=== PATIENT | female | born 1945 | race Caucasian/White ===

== ENCOUNTER 2022-09-27 00:34 | Inpatient (IN) | payer MEDICARE, MEDICAID, SELFPAY ==
[2022-09-27] VITALS (22 sets, daily range): BP systolic 101–138; BP diastolic 56–78; PULSE 79–110; RESP 13–32; TEMP 37.1–37.6; O2SAT 87–100; BMI 21.9
--- NOTE | 2022-09-27 00:35 | HMH.EDGENADL ---
Discharge Plan Disposition Chief Complaint: Altered Mental Status Clinical Impressions Clinical Impression: Acute respiratory failure with hypoxia and hypercarbia, Acute exacerbation of chronic obstructive pulmonary disease (COPD) Instructions Patient Instructions: DI for Altered Mental Status Discharge ED Provider: Braeden Winters Adult HPI General Chief complaint: Altered Mental Status Stated complaint: Respiratory Failure Time Seen by Provider: 09/27/22 00:35 Mode of Arrival: EMS History of Present Illness HPI narrative: 76-year-old female reported history of COPD on 2 L nasal cannula at home presents with acute respiratory failure and altered mental status. Patient unable to provide any significant history. History obtained from EMS. Per report patient became unresponsive while getting a nebulizer treatment at home, on EMS arrival patient was satting 25%, on nonrebreather in route satting in the 60s. On arrival patient normotensive, minimally responsive. History limited by acute of condition. Further history obtained from family at bedside after resuscitation, patient recently admitted to [facility] for pneumonia and was placed on oxygen at that time. They are unsure what happened with her oxygen/nebulizer treatments at home today as they were not at the house at the time of decompensation. Related Data Allergies Allergy/AdvReac Type Severity Reaction Status Date / Time No Known Allergies Allergy Verified 09/27/22 00:58 [facility] Disclaimer: The information contained in this section may have been updated after the patient was seen, as this information can be updated by other users. Social History Smoking Status: Current every day smoker alcohol intake: never current occupational status: retired Travel in the last 8 weeks: None ROS Obtained: Yes unobtainable due to mental condition Physical Exam General General appearance: in distress and other (Minimally responsive) Head Head exam: atraumatic and normocephalic Eye Eye exam: Present PERRL ENT ENT exam: Present normal oropharynx, mucous membranes dry and normal external ear exam Neck Neck exam: Present normal inspection and full ROM Chest Chest inspection: Present symmetric chest wall rise and other (Barrel chested); Absent tenderness Respiratory Respiratory exam: Present respiratory distress and other (Wheezing and rhonchi bilaterally with prolonged expiratory phase, poor air movement) Cardiovascular Cardiovascular exam: Present normal rhythm and tachycardia Abdominal Exam Abdominal exam: Present soft; Absent distention, tenderness or guarding Extremities Exam Extremities exam: Present edema; Absent joint swelling Back Exam Back exam: Present normal inspection; Absent tenderness Neurological Exam Neurological exam: Present other (GCS 11 on arrival) Psychiatric Psychiatric exam: Present other (Unable to assess secondary to altered mental status) Skin Skin exam: Present warm, dry and normal color Lymphatic Lymphatic Findings: no adenopathy Medical Decision Making Medical Records Medical records reviewed: Yes I reviewed the patient's medical records. Albino Inquiry Pt receiving controlled substance: No Albino was queried for this patient: No Vital Signs: 09/27/22 00:39 Temperature 99.6 F Temperature Source Rectal Pulse Rate [Right] 104 H Respiratory Rate 23 Blood Pressure [Right Arm] 138/78 Blood Pressure Mean [Right Arm] 98 Blood Pressure Source [Right Arm] Automatic Cuff Blood Pressure Position [Right Arm] Supine 02 Sat by Pulse Oximetry 100 Oxygen Delivery Method BiPAP Lab Data Lab results reviewed: Yes I reviewed the patient's lab results. Lab Results 09/27/22 00:25: WBC 15.0 H, RBC 4.73, Hgb 12.9, Hct 43.2, MCV 91.3, MCH 27.2, MCHC 29.8 L, RDW 14.4, Plt Count 284, MPV 7.3 L, Neut % (Auto) 70.7, Lymph % (Auto) 19.5, [place] % (Auto) 3.7, Eos % (Auto) 5.7, Baso % (Auto) 0.4, Neut # (Auto) 10.6 H, Lymph
--- NOTE | 2022-09-27 00:36 | XR_ITS ---
PROCEDURE INFORMATION: Exam: XR Chest Exam date and time: 09/27/2022 12:35 AM Age: 76 years old Clinical indication: Condition or disease; Lung condition and disease; Hypoxia TECHNIQUE: Imaging protocol: Radiologic exam of the chest. Views: 1 view. COMPARISON: No relevant prior studies available. FINDINGS: Lungs: Underlying interstitial lung markings. Hyperinflated lungs. Pleural spaces: Tiny bilateral pleural effusions versus chronic pleural thickening. Heart/Mediastinum: Unremarkable. No cardiomegaly. Vasculature: Atherosclerotic calcification of thoracic aorta. Bones/joints: Unremarkable. IMPRESSION: Tiny pleural effusions versus chronic pleural thickening.
[2022-09-27 00:45] LABS: Basophils # 0.1 K/mm3 (0-0.2); Basophils % 0.4 % (0.1-2.0); Eosinophils # 0.9 K/mm3 (0.0-0.4); Eosinophils % 5.7 % (0.1-12.0); Hematocrit 43.2 % (37.0-47.0); Hemoglobin 12.9 g/dL (12.2-16.2); Lymphocytes # 2.9 K/mm3 (0.7-4.5); Lymphocytes % 19.5 % (10-50); Mean Corpuscular HGB Conc 29.8 g/dL (31.8-35.4); Mean Corpuscular Hemoglobin 27.2 pg (27.0-31.2); Mean Corpuscular Volume 91.3 fl (81-99); Mean Platelet Volume 7.3 fl (7.4-10.4); Monocytes # 0.6 K/mm3 (0.1-1.0); Monocytes % 3.7 % (1.7-9.3); Neutrophils # 10.6 K/mm3 (1.8-7.8); Neutrophils % 70.7 % (37.0-80.0); Platelet Count 284 K/mm3 (142-424); Red Blood Count 4.73 M/mm3 (4.20-5.40); Red Cell Distribution Width 14.4 % (11.5-17.5)
--- NOTE | 2022-09-27 00:45 | ECG_ITS ---
APPROVED REPORT Exam: Resting ECG HR:107 bpm ECG Measurements Heart Rate 107 AXES WI 172 P 79 QRSd 92 QRS -84 QT 346 T 72 QTc 408 Conclusion SINUS TACHYCARDIA Bi-atrial abnormality LEFT AXIS DEVIATION [QRS AXIS < -30] ABNORMAL ECG UNCONFIRMED REPORT Electronically signed by : Jose Nelson MD 09/27/2022 16:16:33
[2022-09-27 00:46] LABS: MANUAL DIFFERENTIAL MANUAL DIFFERENTIAL (MANUAL DIFF)
--- NOTE | 2022-09-27 00:47 | CT_ITS ---
PROCEDURE INFORMATION: Exam: CTA Chest With Contrast Exam date and time: 09/27/2022 1:09 AM Age: 76 years old Clinical indication: Condition or disease; Lung condition and disease; Hypoxia; Additional info: Hypoxia AMS TECHNIQUE: Imaging protocol: Computed tomographic angiography of the chest with contrast. Exam focused on the arteries. 3D rendering (Not supervised by radiologist): MIP and/or 3D reconstructed images were created by the technologist. Radiation optimization: All CT scans at this facility use at least one of these dose optimization techniques: automated exposure control; mA and/or kV adjustment per patient size (includes targeted exams where dose is matched to clinical indication); or iterative reconstruction. Contrast material: ISOVUE; Contrast volume: 70 ml; Contrast route: INTRAVENOUS (IV); REPORTING DATA: Count of CT and Cardiac NM exams in prior 12 months: This patient has received 0 known CTs and 0 known cardiac nuclear medicine studies in the 12 months prior to the current study. COMPARISON: CR XR CHEST PORTABLE 09/27/2022 12:35 AM FINDINGS: Pulmonary arteries: Normal. No pulmonary emboli. Aorta: Atherosclerotic calcification of thoracic aorta. No aortic dissection. No aortic aneurysm. Lungs: Benign calcified nodule in left lower lobe. Underlying diffuse centrilobular emphysematous changes throughout both lungs. Underlying bronchiectasis most pronounced lower lung zones. Pleural spaces: Unremarkable. No pneumothorax. No pleural effusion. Heart: Unremarkable. No cardiomegaly. No pericardial effusion. Coronary arteries: Atherosclerotic calcification of coronary arteries. Lymph nodes: Unremarkable. No enlarged lymph nodes. Bones/joints: Unremarkable. No acute fracture. Soft tissues: Unremarkable. IMPRESSION: 1. No central or segmental pulmonary embolism by CT criteria. 2. Emphysematous changes. COMMENTS: In the absence of a history or active diagnosis of lung cancer, it is recommended that this patient with emphysema be evaluated for enrollment in a low dose CT lung cancer screening program.
--- NOTE | 2022-09-27 00:47 | CT_ITS ---
PROCEDURE INFORMATION: Exam: CT Head Without Contrast Exam date and time: 09/27/2022 1:05 AM Age: 76 years old Clinical indication: Altered mental status/memory loss; Additional info: AMS TECHNIQUE: Imaging protocol: Computed tomography of the head without contrast. Radiation optimization: All CT scans at this facility use at least one of these dose optimization techniques: automated exposure control; mA and/or kV adjustment per patient size (includes targeted exams where dose is matched to clinical indication); or iterative reconstruction. REPORTING DATA: Count of CT and Cardiac NM exams in prior 12 months: This patient has received 0 known CTs and 0 known cardiac nuclear medicine studies in the 12 months prior to the current study. COMPARISON: No relevant prior studies available. FINDINGS: Brain: Underlying periventricular white matter changes. Underlying parenchymal cortical volume loss. Cerebral ventricles: No ventriculomegaly. Paranasal sinuses: Postsurgical changes compatible with partial ethmoidectomies. Chronic mucosal thickening of maxillary sinus and ethmoid air cells. Mastoid air cells: Visualized mastoid air cells are well aerated. Bones/joints: Unremarkable. No acute fracture. Soft tissues: Unremarkable. Other findings: No fluid opacification. IMPRESSION: 1. No acute intracranial findings by CT criteria. Chronic underlying changes. 2. Chronic sinus congestion.
[2022-09-27 00:48] LABS: Chloride 97 mmol/L (98-107); Potassium 3.7 mmoL/L (3.5-5.1); Sodium 138 mmol/L (136-145)
[2022-09-27 00:51] LABS: Alanine Aminotransferase 25 U/L (12-78); Albumin Level 3.8 g/dl (3.5-5.0); Albumin/Globulin Ratio 1.2 (1.1-1.8); Alkaline Phosphatase 141 U/L (38-126); Anion Gap 8.7 mEq/L (5-15); Aspartate Amino Transferase 46 U/L (14-36); Bilirubin,Total 0.6 mg/dl (0.2-1.3); Blood Urea Nitrogen 5 mg/dl (7-17); Carbon Dioxide 36 mmol/L (22.0-30.0); Estimated Glomerular Filt Rate 97 ml/min (>60); GFR (African American) 118 ML/MIN (>60); Globulin 3.1 g/dL (1.3-3.2); Total Protein,Serum 6.9 g/dl (6.3-8.2)
[2022-09-27 00:52] LABS: Calcium 8.7 mg/dl (8.4-10.2); Glucose 262 mg/dl (74-100)
[2022-09-27 01:03] LABS: NT Pro Brain Natriuretic Pep. 338 pg/mL (0-450); Troponin I < 0.01 ng/ml (0.00-0.034)
[2022-09-27 01:11] LABS: Lactic Acid 1.4 mmol/L (0.7-2.1)
[2022-09-27 01:25] LABS: Microscopic, Urine URINE MICROSCOPIC (MICROSCOPIC)
[2022-09-27 01:35] LABS: Appearance,Urine CLEAR (Clear); Bilirubin,Urine Negative (Negative); Blood, Urine 2+ (Negative); Color,Urine YELLOW (Yellow); Glucose,Urine (UA) 1+ (Negative); Ketones,Urine Negative (Negative); Leukocyte Esterase,Urine Negative (Negative); Nitrate,Urine Negative (Negative); PH,Urine 5.5 (5.0-8.5); Protein,Urine 2+ (Negative); Specific Gravity, Urine >= 1.030 (1.005-1.030)
[2022-09-27 01:44] LABS: VBG Base Excess 4.1 mmol/L (-2.4-2.3); VBG HCO3 32.7 mmol/L (23-30); VBG Oxygen Saturation 80.9 % (50-70); VBG PCO2 91.6 mmol/L (35-51); VBG PH 7.17 mmol/L (7.31-7.41); VBG PO2 49.4 mmol/L (28-40); VBG Total CO2 35.5 mmol/L (23-27)
[2022-09-27 01:45] LABS: Bacteria,Urine Trace /lpf; Barbiturates Screen,Urine Negative ng/ml (<200)
[2022-09-27 01:46] LABS: Amphetamine/Metha Screen,Urine Negative ng/ml (<1000); Benzodiazepines Screen,Urine Negative ng/ml (<200)
[2022-09-27 01:47] LABS: Cannabinoid Screen,Urine Negative ng/ml (<50)
[2022-09-27 01:48] LABS: Cocaine Screen,Urine Negative ng/ml (<300); Methadone Screen,Urine Negative ng/ml (<300)
[2022-09-27 01:49] LABS: Opiate Screen,Urine Negative ng/ml (<300)
[2022-09-27 01:50] LABS: Phencyclidine Screen,Urine Negative ng/ml (<25)
[2022-09-27 01:54] LABS: VBG Base Excess 7.8 mmol/L (-2.4-2.3); VBG Oxygen Saturation 80.5 % (50-70); VBG PO2 50.6 mmol/L (28-40); VBG Total CO2 40.5 mmol/L (23-27)
--- NOTE | 2022-09-27 01:57 | PC.NURSE ---
took VBG results via phone. handed immediately to
[2022-09-27 01:58] LABS: VBG PCO2 113.5 mmol/L (35-51); VBG PH 7.13 mmol/L (7.31-7.41)
[2022-09-27 02:08] LABS: Hypochromasia 2+; Lymphocytes % 19 % (10-50); Monocytes % 6 % (2-9); Neutrophils % 75 % (42-76); Platelet Estimate Normal; Total Cells Counted 100
--- NOTE | 2022-09-27 03:03 | EXP.HP ---
History of Present Illness *Admission Date: 09/27/22 *Reason for visit:: COPD exacerbation *History of present illness: 76 year old female presented to the ED via ems for hypoxia. Upon arrival to the ED the patient's o2 was 64% on a nonrebreather. Pt was placed on BIPAP with improvement in mental status. PMHX of COPD per EMS. Pt and family poor historian. Son at bedside and states pt only uses oxygen and breathing treatments at home. Niece states pt is non complaint with the oxygen and is still smoking. Pt became unresponsive tonight and family called ems. EMS states upon arrival to [place] [id number] was 25%. The patient was dx from [facility] for a COPD exacerbation. In the ED the pt became more responsive with use of BIPAP. Initial VBG w/ pH of 7.17 and PCO2 91.6. Repeat VBG after BIPAP worsen to pH 7.13 and PCO2 of 113.5. Report of little use due to travel for imaging in the ED. The pt received a CTA of her chest and chest xray which revealed emphysematous changes without PE or other abnormalities. She was given methylprednisolone, rocephin, and azithromycin. The ED physician spoke with the hospitalist team for admission. Pt arrives to the medical floor in distress. Pt placed back on BIPAP. Pt is following comands and breathing 60 times a minute. She was given 2g of IV mag and her rate improved with BIPAP use. Will repeat blood gas [facility] Disclaimer: The information contained in this section may have been updated after the patient was seen, as this information can be updated by other users. Medical History Bronchiectasis Chronic respiratory failure with hypoxia COPD (chronic obstructive pulmonary disease) On home O2 Pulmonary nodule Smoker Family History (Updated 09/27/22 @ 05:19 by Benitez Banda RN) Family history of stroke Social History Smoking Status: Current every day smoker alcohol intake: never current occupational status: retired Travel in the last 8 weeks: None Review of Systems Review of Systems Review of systems:: pertinent systems reviewed and negative unless documented below Constitutional Constitutional: Reports system reviewed and no additional complaints, except as documented Eyes Eyes: Reports system reviewed and no additional complaints, except as documented ENT Ears, Nose, Mouth, and Throat: Reports system reviewed and no additional complaints, except as documented *Cardiovascular Cardiovascular: Reports system reviewed and no additional complaints, except as documented and Reports dyspnea on exertion *Respiratory Respiratory: Reports dyspnea on exertion *Gastrointestinal Gastrointestinal: Reports system reviewed and no additional complaints, except as documented *Genitourinary Genitourinary: Reports system reviewed and no additional complaints, except as documented *Musculoskeletal Musculoskeletal: Reports system reviewed and no additional complaints, except as documented Integumentary/Breasts Skin/Breast: Reports system reviewed and no additional complaints, except as documented *Neurologic Neurologic: Reports system reviewed and no additional complaints, except as documented Meds Home Medications and Allergies Home Medications Medication Instructions Recorded Confirmed Type budesonide-formoterol HFA 160 2 puff inhalation BID Breathing 09/27/22 09/27/22 History mcg-4.5 mcg/actuation aerosol Problems inhaler (Symbicort) conjugated estrogens 0.625 mg/gram 0.625 mg vaginal DAILY Pessary 09/27/22 09/27/22 History vaginal cream (Premarin) ipratropium 0.5 mg-albuterol 3 mg 3 ml inhalation Q6HP PRN Breathing 09/27/22 09/27/22 History (2.5 mg base)/3 mL nebulization Problems soln multivitamin 1 tab PO DAILY Supplement 09/27/22 09/27/22 History New Prescriptions to Start Prescriptions: Allergies Allergy/AdvReac Type Severity Reaction Status Date / Time No Known Allergies Allergy Verified 09/27/22 00:58 E
[2022-09-27 04:00] LABS: Troponin I 0.02 ng/ml (0.00-0.034)
[2022-09-27 04:58] LABS: ABG Base Excess 6.8 mmol/L (-2.4-2.3); ABG HCO3 33.9 mmhg (22.0-26.0); ABG Oxygen Saturation 89 % (90-100); ABG PH 7.26 mmol/L (7.35-7.45); ABG TCO2 36.2 mmhg (23-27)
[2022-09-27 04:59] LABS: Allen's Test Acceptable; Oxygen 25 %; Pressure Support 16/6; Source Right Radial; Vent Rate 20
[2022-09-27 05:01] LABS: ABG PCO2 77.2 mmhg (35.0-45.0)
[2022-09-27 06:30] LABS: Basophils % 0.2 % (0.1-2.0); Eosinophils % 0.1 % (0.1-12.0); Hematocrit 41.7 % (37.0-47.0); Hemoglobin 12.6 g/dL (12.2-16.2); Lymphocytes # 0.5 K/mm3 (0.7-4.5); Lymphocytes % 5.4 % (10-50); Mean Corpuscular HGB Conc 30.2 g/dL (31.8-35.4); Mean Corpuscular Hemoglobin 27.6 pg (27.0-31.2); Mean Corpuscular Volume 91.3 fl (81-99); Mean Platelet Volume 7.9 fl (7.4-10.4); Monocytes # 0.2 K/mm3 (0.1-1.0); Monocytes % 2.1 % (1.7-9.3); Neutrophils # 8.7 K/mm3 (1.8-7.8); Neutrophils % 92.2 % (37.0-80.0); Platelet Count 242 K/mm3 (142-424); Red Blood Count 4.57 M/mm3 (4.20-5.40); Red Cell Distribution Width 14.6 % (11.5-17.5); White Blood Count 9.5 K/mm3 (4.8-10.8)
[2022-09-27 06:36] LABS: Anion Gap 7.9 mEq/L (5-15); Blood Urea Nitrogen 6 mg/dl (7-17); Calcium 8.3 mg/dl (8.4-10.2); Carbon Dioxide 35 mmol/L (22.0-30.0); Chloride 101 mmol/L (98-107); Creatinine Clearance Estimated 39 mL/min (50-200); Estimated Glomerular Filt Rate 120 ml/min (>60); GFR (African American) 146 ML/MIN (>60); Glucose 131 mg/dl (74-100); Potassium 3.9 mmoL/L (3.5-5.1); Sodium 140 mmol/L (136-145)
--- NOTE | 2022-09-27 08:20 | HMH.PHAINT1 ---
Pharmacy Intervention Comments: Patient's home mediations were reviewed and verified with family members of the patient. -Son Linder, PharmD student
--- NOTE | 2022-09-27 08:58 | EXP.PULM.CON ---
History of Present Illness History of present illness: Ms. Miller is a 76-year-old female current smoker greater than [id number] smoking cigars a diagnosis of COPD noncompliant with her inhaler therapy presented with worsening respiratory distress and hypercarbic respiratory failure needing BiPAP therapy and pulmonary was called for further evaluation [facility] Disclaimer: The information contained in this section may have been updated after the patient was seen, as this information can be updated by other users. Medical History Bronchiectasis Chronic respiratory failure with hypoxia COPD (chronic obstructive pulmonary disease) On home O2 Pulmonary nodule Smoker Family History (Updated 09/27/22 @ 05:19 by Benitez Banda, RN) Other Family history of stroke Social History Smoking Status: Current every day smoker alcohol intake: never current occupational status: retired Travel in the last 8 weeks: None Review of Systems Constitutional Constitutional: Reports anorexia, Reports body ache(s) and Reports fatigue Eyes Eyes: Denies eye discharge, Denies dry eyes, Denies irritation and Denies itchy eyes ENT Ears, Nose, Mouth, and Throat: Denies epistaxis, Denies facial pain, Denies lip swelling and Denies throat swelling *Cardiovascular Cardiovascular: Reports dyspnea and Reports dyspnea on exertion *Respiratory Respiratory: Reports chest congestion, Reports cough, Reports dyspnea, Reports dyspnea on exertion, Reports excessive phlegm production, Denies hemoptysis, Denies pain on inspiration and Reports wheezing *Gastrointestinal Gastrointestinal: Denies abdominal pain, Denies belching and Denies cramping *Musculoskeletal Musculoskeletal: Reports back pain, Reports myalgias and Reports other (No small joint swelling or Pain) *Neurologic Neurologic: Reports system reviewed and no additional complaints, except as documented Psychiatric Psychiatric: Denies homicidal ideation and Denies suicidal ideation Endocrine Endocrine: Reports fatigue and Denies heat intolerance Hematologic/Lymphatic Hematologic/Lymphatic: Denies easy bleeding and Denies lymphadenopathy Allergic/Immunologic Allergic/Immunologic: Denies itchy eyes, Denies lip swelling, Denies throat swelling and Reports wheezing Pulmonology Exam Inpatient Vital signs and Labs for Last 24 Hours: Temp Pulse Resp BP Pulse Ox O2 Del Method O2 Flow Rate 99.2 F 79 13 108/63 L 92 L Nasal Cannula 3 09/27/22 08:08 09/27/22 08:00 09/27/22 08:00 09/27/22 08:00 09/27/22 08:48 09/27/22 08:48 09/27/22 08:48 FiO2 25 09/27/22 08:00 Laboratory Results - last 24 hr 09/27/22 00:25: WBC 15.0 H, RBC 4.73, Hgb 12.9, Hct 43.2, MCV 91.3, MCH 27.2, MCHC 29.8 L, RDW 14.4, Plt Count 284, MPV 7.3 L, Neut % (Auto) 70.7, Lymph % (Auto) 19.5, [place] % (Auto) 3.7, Eos % (Auto) 5.7, Baso % (Auto) 0.4, Neut # (Auto) 10.6 H, Lymph # (Auto) 2.9, [place] # (Auto) 0.6, Eos # (Auto) 0.9 H, Baso # (Auto) 0.1, Total Counted 100, Neutrophils % (Manual) 75, Lymphocytes % (Manual) 19, Monocytes % (Manual) 6, Platelet Estimate Normal, Hypochromasia 2+, Sodium 138, Potassium 3.7, Chloride 97 L, Carbon Dioxide 36 H, Anion Gap 8.7, BUN 5 L, Creatinine 0.60, Estimated GFR 97, Est GFR ( Amer) 118, Glucose 262 H, Calcium 8.7, Magnesium 2.0, Total Bilirubin 0.6, AST 46 H, ALT 25, Alkaline Phosphatase 141 H, Troponin I < 0.01, NT-Pro-B Natriuret Pep 338, Total Protein 6.9, Albumin 3.8, Globulin 3.1, Albumin/Globulin Ratio 1.2 09/27/22 00:36: VBG pH 7.17 L, VBG pCO2 91.6 H, VBG pO2 49.4 H, VBG HCO3 32.7 H, VBG Total CO2 35.5 H, VBG O2 Saturation 80.9 H, VBG Base Excess 4.1 H 09/27/22 00:54: Lactate 1.4 09/27/22 01:20: Urine Color Yellow, Urine Appearance Clear, Urine pH 5.5, Ur Specific [place] >= 1.030, Urine Protein 2+, Urine Glucose (UA) 1+, Urine Ketones Negative, Urine Blood 2+, Urine Nitrate Negative, Urine Bilirubin Negative, Urine Urobilinog
[2022-09-27 10:55] LABS: Adenovirus,PCR Not Detected (NotDetected); Bordetella Pertussis Not Detected (NotDetected); Chlamydophila Pneumoniae, PCR Not Detected (NotDetected); Coronavirus 19, PCR Not Detected (NotDetected); Coronavirus 229E Not Detected (NotDetected); Coronavirus NL63 Not Detected (NotDetected); Coronavirus OC43 Not Detected (NotDetected); Coronovirus HKU1,PCR Not Detected (NotDetected); Human Metapneumovirus Not Detected (NotDetected); Influenza A, PCR Not Detected (NotDetected); Influenza AH1, 2009 Not Detected (NotDetected); Influenza AH1, PCR Not Detected (NotDetected); Influenza AH3,PCR Not Detected (NotDetected); Influenza B, PCR Not Detected (NotDetected); Mycoplasma Pneumoniae, PCR Not Detected (NotDetected); Parainfluenza 1, PCR Not Detected (NotDetected); Parainfluenza 2, PCR Not Detected (NotDetected); Parainfluenza 3, PCR Not Detected (NotDetected); Parainfluenza 4, PCR Not Detected (NotDetected); Respiratory Syncytial Virus Not Detected (NotDetected)
[2022-09-27 13:04] LABS: Rhinovirus/Enterovirus Detected (NotDetected)
--- NOTE | 2022-09-27 13:57 | PC.NURSE ---
pt's mayes catheter leaking, removed mayes catheter at this time, 1000mL in bag but also had some on sheets; instructed pt to call when needs to go so can assist her to bathroom; SRNA's Rosalia and Nohemy got pt up to chair and changed pt's bed
--- NOTE | 2022-09-27 17:06 | PC.NURSE ---
moving pt to 214 from 219
--- NOTE | 2022-09-27 17:11 | PC.NURSE ---
moving pt after she eats dinner to 204 from 219
--- NOTE | 2022-09-27 17:47 | PC.NURSE ---
Report received from Olivia Mcnamara RN. Clarified orders with Joe ADAMS. Pt does not need to be placed on Bipap overnight. She is currently on 3.5 L NC. Resting in the chair. She is happy and joking with staff. Family in room with pt. No needs expressed at this time. Call light within reach.
[2022-09-28] VITALS (7 sets, daily range): BP systolic 98–120; BP diastolic 55–70; PULSE 80–105; RESP 16–22; TEMP 36.5–37.2; O2SAT 88–98; BMI 22.8
--- NOTE | 2022-09-28 05:17 | PC.NURSE ---
SRNA found glassine machine tender in bed with pt during a linen change, glassine machine tender removed from room r/t safety concerns regarding need for pt oxygen use. glassine machine tender is small and black; labeled with a pt sticker, inside a bag, placed in the pt chart. Emergency Medical Tech is aware of the situation.
--- NOTE | 2022-09-28 06:23 | PC.NURSE ---
pt stated she had a bath 09/27 dayshift, didn't recieved one 09/27 7p-7a
[2022-09-28 06:56] LABS: Basophils % 0.1 % (0.1-2.0); Eosinophils % 0.1 % (0.1-12.0); Hematocrit 38.1 % (37.0-47.0); Hemoglobin 11.3 g/dL (12.2-16.2); Lymphocytes # 1.2 K/mm3 (0.7-4.5); Lymphocytes % 13.3 % (10-50); Mean Corpuscular HGB Conc 29.8 g/dL (31.8-35.4); Mean Corpuscular Volume 90.5 fl (81-99); Mean Platelet Volume 7.9 fl (7.4-10.4); Monocytes # 0.4 K/mm3 (0.1-1.0); Monocytes % 4.4 % (1.7-9.3); Neutrophils # 7.6 K/mm3 (1.8-7.8); Neutrophils % 82.1 % (37.0-80.0); Platelet Count 275 K/mm3 (142-424); Red Blood Count 4.21 M/mm3 (4.20-5.40); Red Cell Distribution Width 14.4 % (11.5-17.5); White Blood Count 9.2 K/mm3 (4.8-10.8)
[2022-09-28 07:05] LABS: Alanine Aminotransferase 19 U/L (12-78); Albumin Level 3.2 g/dl (3.5-5.0); Albumin/Globulin Ratio 1.1 (1.1-1.8); Alkaline Phosphatase 99 U/L (38-126); Anion Gap 4.3 mEq/L (5-15); Aspartate Amino Transferase 23 U/L (14-36); Blood Urea Nitrogen 13 mg/dl (7-17); Calcium 8.4 mg/dl (8.4-10.2); Carbon Dioxide 39 mmol/L (22.0-30.0); Chloride 101 mmol/L (98-107); Creatinine Clearance Estimated 41 mL/min (50-200); Estimated Glomerular Filt Rate 97 ml/min (>60); GFR (African American) 118 ML/MIN (>60); Globulin 2.8 g/dL (1.3-3.2); Glucose 140 mg/dl (74-100); Magnesium 2.2 mg/dl (1.6-2.3); Potassium 4.3 mmoL/L (3.5-5.1); Sodium 140 mmol/L (136-145)
[2022-09-28 07:10] LABS: Bilirubin,Total < 0.1 mg/dl (0.2-1.3)
--- NOTE | 2022-09-28 07:48 | EXP.DC.SUM ---
General Admission date:: 09/27/22 Discharge date: 09/28/22 HPI HPI HPI: 76 year old female presented to the ED via ems for hypoxia. Upon arrival to the ED the patient's o2 was 64% on a nonrebreather. Pt was placed on BIPAP with improvement in mental status. PMHX of COPD per EMS. Pt and family poor historian. Son at bedside and states pt only uses oxygen and breathing treatments at home. Niece states pt is non complaint with the oxygen and is still smoking. Pt became unresponsive tonight and family called ems. EMS states upon arrival to [place] 02 was 25%. The patient was dx from [facility] for a COPD exacerbation. In the ED the pt became more responsive with use of BIPAP. Initial VBG w/ pH of 7.17 and PCO2 91.6. Repeat VBG after BIPAP worsen to pH 7.13 and PCO2 of 113.5. Report of little use due to travel for imaging in the ED. The pt received a CTA of her chest and chest xray which revealed emphysematous changes without PE or other abnormalities. She was given methylprednisolone, rocephin, and azithromycin. The ED physician spoke with the hospitalist team for admission. Pt arrives to the medical floor in distress. Pt placed back on BIPAP. Pt is following comands and breathing 60 times a minute. She was given 2g of IV mag and her rate improved with BIPAP use. Will repeat blood gas Hospital Course Hospital Course Hospital Course: 76 year old female presented to the ED via ems for hypoxia. Upon arrival to the ED the patient's o2 was 64% on a nonrebreather. Blood gas positive for hypercarbia, placed on BiPAP with gradual improvement over the first day of admission in mentation and hypercapnic respiratory failure. Transition to nasal cannula oxygen (wears 2 L continuous at home). Comprehensive respiratory panel positive for enterovirus/rhinovirus. Treating for COPD exacerbation and acute hypercarbic respiratory failure. Pulmonology assisted with care. Has improved to the point she stable for discharge home to continue treatment with oral antibiotics and steroids. Discussed prognosis and treatment with family at bedside. Problems addressed as follows: ACUTE RESPIRATORY FAILURE WITH HYPOXIA AND HYPERCARBIA COPD exacerbation -Presented to ED with saturations of 64% and CO2 greater than 100. Initiated on BiPAP with gradual improvement by morning. Improve mentation and back to baseline per family. Pulmonology was consulted and assisted with care. Able to come off BiPAP and transition to just nasal cannula oxygen. Started on ceftriaxone and azithromycin along with steroids for her COPD exacerbation. Will transition to levofloxacin to complete 5 days of antibiotics on discharge. Steroids transition to prednisone to complete 5 days of treatment. Patient will follow with pulmonology in the coming weeks. Pulmonology recommends PFTs and 6-minute walk test in 6 weeks. At this time patient is stable to discharge home and continue weaning her oxygen and treatment with antibiotics and steroids. On 2 to 4 L oxygen for the past 24 hours depending on if she is awake or asleep. Chest imaging and CTA of chest reviewed showing emphysematous changes but no focal consolidation or PE. Continue DuoNebs every 6 hours as needed at home. Inhaler therapy transition to [facility], sent home with inhaler from hospital. Of note, extensive counseling on tobacco cessation. Patient states understanding. Started on nicotine patches to aid in cessation. Exam Data for Last 24 hours Vital signs and Labs for Last 24 Hours: Temp Pulse Resp BP Pulse Ox O2 Del Method O2 Flow Rate 97.7 F 91 H 18 120/70 93 L Nasal Cannula 3.5 09/28/22 07:16 09/28/22 07:16 09/28/22 07:16 09/28/22 07:16 09/28/22 07:36 09/28/22 07:36 09/28/22 07:36 FiO2 25 09/27/22 08:00 Laboratory Results - last 24 hr 09/27/22 10:45: Chlamy pneumoniae PCR Not detected, Adenovirus (PCR) Not detected, B. pertussis DNA (PCR) Not detected, Coronavirus OC43 (PCR) Not detected, Coronavirus
--- NOTE | 2022-09-28 09:45 | PC.NURSE ---
Alina Fox notified reguarding patient discharged on a weekend, and still needing a PFT and 6 minute walk scheduled as well as a follow up appt. Dr. Russ office will notify patient next week with times and dates of appts.
--- NOTE | 2022-10-01 14:10 | CARE MANAGER ---
Attempted to contact patient related to hospital discharge. The number listed in the chart is a wrong number. TAWNYA Aguilera
== END 2022-09-28 12:05 | disposition home or self-care (01) | DRG 189 ==
LOC: ER 02:06 → 2ND 02:37
PROVIDERS: Nurse Practitioner Critical Care Medicine; Admitting Provider Internal Medicine Adolescent Medicine; Emergency Provider Emergency Medicine; Visit Provider Internal Medicine Adolescent Medicine
DX: J96.02 Acute respiratory failure with hypercapnia (principal); J44.1 Chronic obstructive pulmonary disease with (acute) exacerbation; J96.21 Acute and chronic respiratory failure with hypoxia; Z99.81 Dependence on supplemental oxygen; F17.200 Nicotine dependence, unspecified, uncomplicated; J47.9 Bronchiectasis, uncomplicated
CPT/HCPCS: 36415; 70450; 71045; 71275; 80048; 80053; 80305; 81001; 82803; 83605; 83735; 83880; 84484; 85007; 85025; 87040; 87581; 87632; 87798; 87807; 93005; 93041; 94640; 94660; 94760; 94761; 99291; J0456; J0696; J3475; Q9967

== ENCOUNTER 2023-12-13 05:46 | Observation (INO) | payer MEDICARE, SELFPAY ==
[2023-12-13] VITALS (22 sets, daily range): BP systolic 96–124; BP diastolic 56–77; PULSE 66–87; RESP 14–31; TEMP 36.4–37.1; O2SAT 90–100; BMI 15.6; BMI 17.6
--- NOTE | 2023-12-13 05:48 | ECG_ITS ---
APPROVED REPORT Exam: Resting ECG HR:84 bpm ECG Measurements Heart Rate 84 AXES MA 179 P 74 QRSd 96 QRS 239 QT 367 T 69 QTc [address] abnormalities in the lateral leads Wandering baseline complicates interpretation, see repeat ECG for improved quality study and better interpretation. No STEMI Electronically signed by : AYANA NAJERA, 12/13/2023 07:13:10
--- NOTE | 2023-12-13 05:55 | XR_ITS ---
PROCEDURE INFORMATION: Exam: XR Chest Exam date and time: 12/13/2023 5:57 AM Age: 78 years old Clinical indication: Cough and shortness of breath; Additional info: Cough SOA TECHNIQUE: Imaging protocol: Radiologic exam of the chest. Views: 1 view. COMPARISON: CT ANGIO CHEST PE PROTOCOL 09/27/2022 1:09 AM FINDINGS: Lungs: Hyperexpanded lung mar[place] consistent with COPD. Mild opacities in the lung bases may represent atelectasis or pneumonia. Pleural spaces: Unremarkable. No pleural effusion. No pneumothorax. Heart/Mediastinum: Unremarkable. No cardiomegaly. Bones/joints: Unremarkable. IMPRESSION: Mild opacities in the lung bases may represent atelectasis or pneumonia.
[2023-12-13 05:56] LABS: VBG Base Excess 5.2 mmol/L (-2.4-2.3); VBG HCO3 31.7 mmol/L (23-30); VBG Oxygen Saturation 70.5 % (50-70); VBG PO2 39.6 mmol/L (28-40); VBG Total CO2 33.7 mmol/L (23-27)
[2023-12-13 05:58] LABS: Lactate Venous 2.1 mmol/L (0.4-2.0); VBG PCO2 66.3 mmol/L (35-51)
--- NOTE | 2023-12-13 06:03 | ED_ITS ---
Discharge Plan Disposition Patient Disposition: Admitted Prescriptions Prescriptions: No Action ipratropium-albuterol 0.5 mg-3 mg(2.5 mg base)/3 mL solution for nebulization 3 ml INHALATION Q6HP PRN (Reason: Breathing Problems) Patient Comments: USE 1 AMPULE IN NEBULIZER EVERY 6 HOURS NEEDED FOR WHEEZING FOR SHORTNESS OF BREATH multivitamin Tablet 1 tab PO DAILY Premarin 0.625 mg/gram Cream 0.625 mg VAGINAL DAILY Rx Instructions: off 5 days; repeat cycle tsqzzrplfvi-mutadczkt-jhqczulk 100-62.5-25 mcg Blister With Device 1 inh inhalation DAILY 30 Days Qty: 60 0RF nicotine 21 mg/24 hr Patch 24 Hour 21 mg transdermal DAILY 28 Days Qty: 28 0RF prednisone 20 mg Tablet 40 mg PO DAILY 3 Days Qty: 6 0RF levofloxacin 750 mg tablet 750 mg PO DAILY 3 Days Qty: 3 0RF Referrals Follow up/Referrals: Provider,Referral, MD [Primary Care Provider] - See instructions Clinical Impressions Clinical Impression: Fluid overload, Hypercarbia, Pulmonary embolism, Acute exacerbation of CHF (congestive heart failure), Pleural effusion, BRBPR (bright red blood per rectum) Print Language Print Language: Yakut Discharge ED Provider: Mary Manning HPI <Beck Cornelius MD - Last Filed: 12/13/23 07:02> General Chief Complaint: Shortness of Breath/Dyspnea Stated Complaint: Rectal bleeding Time Seen by Provider: 12/13/23 05:50 Mode of Arrival: EMS Source of Information: Patient and EMS Limitations: No Limitations Description of Symptoms (Recalled from ER Triage Doc. by RN): Patient complains of SOA and rectal bleeding; states she has had swollen feet for 2 weeks; coughing for 3 days along with headache and dizziness. Wears 3L NC at baseline. History of Present Illness HPI narrative: 78-year-old female presents to the ER with complaints of shortness of breath and rectal bleeding. Patient reports she has had 2 weeks of swelling in the feet and legs. She also reports that for the last few weeks she has felt mildly under the weather like she is sick. She states in the last 2 to 3 days she has developed cough and feels like she gets cold chills. Patient reports today she had 1 bowel movement and after her bowel movement poured blood out of her bottom. Patient denies taking any medications for fluids. She states she takes albuterol inhaler as well as a nebulizer and wears 3 L nasal cannula at baseline. Patient reported to EMS that she took herself off of all of her other medications herself recently because she did not think she needed them. EMS reports they administered 1 DuoNeb as well as 1 albuterol treatment and 125 Solu-Medrol in route. Patient denies any nausea, vomiting, or abdominal pain. Related Data Home Medications ?Medication ?Instructions ?Recorded ?Confirmed conjugated estrogens 0.625 mg/gram 0.625 mg vaginal DAILY Pessary 09/27/22 09/27/22 vaginal cream (Premarin) ipratropium 0.5 mg-albuterol 3 mg 3 ml inhalation Q6HP PRN Breathing 09/27/22 09/27/22 (2.5 mg base)/3 mL nebulization Problems soln multivitamin 1 tab PO DAILY Supplement 09/27/22 09/27/22 Previous Rx's ?Medication ?Instructions ?Recorded fluticasone fur. 100 mcg-umeclid 1 inh inhalation DAILY 30 days #60 09/28/22 62.5 mcg-vilant 25 mcg ea inhalat.powder levofloxacin 750 mg tablet 750 mg PO DAILY 3 days #3 tabs 09/28/22 nicotine 21 mg/24 hr daily 21 mg transdermal DAILY 28 days 09/28/22 transdermal patch #28 ea prednisone 20 mg tablet 40 mg (2 x 20 mg) PO DAILY 3 days 09/28/22 #6 tabs Allergies Allergy/AdvReac Type Severity Reaction Status Date / Time No Known Allergies Allergy Verified 09/27/22 00:58 [facility] <Beck Cornelius MD - Last Filed: 12/13/23 07:02> [facility] Disclaimer: The information contained in this section may have been updated after the patient was seen, as this information can be updated by other users. Medical History (Updated 12/13/23 @ 08:56 by Mary Manning DO) Bronchiectasis Pulmonary nodule Chronic respiratory failure with hypoxia On home O2 Smoker COPD (chronic obstructive pulmonary disease) Family History (Updated 09/27/22 @ 05:19 by Benitez Banda RN) Other Family history of stroke Social History Smoking Status: Current every day smoker alcohol intake: never current occupational status: retired Travel in the last 8 weeks: None Other Medical History Have you received the Flu Vaccine for this season: No Have you received the Pneumonia Vaccine: No <Beck Cornelius MD - Last Filed: 12/13/23 07:02> ROS Obtained: Yes All systems reviewed & no additional complaints except as documented Positive ROS per HPI Physical Exam <Beck Cornelius MD - Last Filed: 12/13/23 07:02> General General appearance: alert and in no apparent distress Comment: Chronically ill-appearing but not in extremis Head Head exam: atraumatic and normocephalic Eye Eye exam: Present PERRL and EOMI ENT ENT exam: Present mucous membranes moist Neck Neck exam: Present normal inspection and full ROM Chest Chest inspection: Present symmetric chest wall rise; Absent tenderness Respiratory Respiratory exam: Present other (Mild rhonchi/rales throughout); Absent respiratory distress, wheezes or stridor Cardiovascular Cardiovascular exam: Present regular rate and normal rhythm Abdominal Exam Abdominal exam: Present soft; Absent distention, tenderness, guarding or rebound Rectal Exam Rectal exam: Present normal rectal tone and other (No fissure); Absent mass comment: Patient has small external hemorrhoid, nonpainful, not thrombosed, patient does have obvious irritation of the mucosa but no active bleeding, no maria a blood on digital rectal exam, no pain with rectal exam Extremities Exam Extremities exam: Present full ROM and edema (+1 to +2 pitting edema in bilateral lower extremities, 2+ pulses in all extremities) Neurological Exam Neurological exam: Present alert and oriented X3; Absent motor sensory deficit Psychiatric Psychiatric exam: Present normal affect and normal mood Skin Skin exam: Present warm and dry HEART Score <Beck Cornelius MD - Last Filed: 12/13/23 07:02> HEART Score HEART Score assessment performed?: Yes History (anamnesis): Slightly suspicious ECG: Non-specific disturbance Age: >65 years Risk factors: 1-2 risk factors Troponin: </= normal limit HEART Score: 4 <Mary Manning DO - Last Filed: 12/13/23 08:59> HEART Score HEART Score: 4 Procedures <Beck Cornelius MD - Last Filed: 12/13/23 07:02> Miscellaneous Procedure Procedure Performed: Limited lung ultrasound A focused ultrasound exam of the pleural spaces was performed to evaluate for pneumothorax, pulmonary edema, pleural effusion and/or consolidation. The ultrasound was performed with the following indications, as noted in the H&P: Shortness of breath Identified structures: Bilateral thoracic cavities were examined. Findings: Lung sliding: -Present bilaterally B-lines: Present in the lateral and anterior [place] bilaterally Pleural effusion: No pleural effusion appreciated bilaterally Consolidation: No consolidation appreciated bilaterally Impression: No pneumothorax, pleural effusion, or consolidation appreciated, however there are B-lines in all examined lung mar[place] bilaterally Images were saved to permanent archive The study was technically adequate CPT 66844-99 This study was performed by wi, and I personally interpreted all images/videos. Based on my clinical judgement, these images were adequate and did not necessitate further imaging. Limited Cardiac Ultrasound Indication: Shortness of breath Identified cardiac views: Subxiphoid, apical four-chamber, parasternal long axis Findings: Cardiac activity present with no gross wall motion abnormality, no pericardial effusion, no findings of right heart strain Impression: -Cardiac activity with no gross wall motion abnormality, no pericardial fusion, no findings of right heart strain Images were saved to permanent archive The study was technically adequate CPT: 90515 This study was performed by wi, and I personally interpreted all images/videos. Based on my clinical judgement, these images were adequate and did not necessitate further imaging. Critical Care <Beck Cornelius MD - Last Filed: 12/13/23 07:02> Critical Care Time Critical Care Time: Yes Attestation: On 12/13/23, the high probability of a clinically significant, sudden or life threatening deterioration of the following system(s) (respiratory) required my full and direct attention, intervention and personal management. The time I documented below is in addition to time spent performing reported procedures but includes the following listed in this critical care notation. Total Time Total Critical Care Time: 35 Medical Decision Making <Beck Corneilus MD - Last Filed: 12/13/23 07:02> Medical Records Medical records reviewed: Yes I reviewed the patient's medical records. MR Comment: Patient was admitted for COPD exacerbation in August 2022. She had initially presented hypoxic and received BiPAP. Her VBG at that time showed significant respiratory acidosis. Albino Inquiry Pt receiving controlled substance: No Vital Signs Vital Signs: 12/13/23 05:46 12/13/23 06:10 12/13/23 06:10 Temperature 97.9 F Temperature Source Temporal Artery Scan Pulse Rate 79 Pulse Rate [Right Radial] 84 Respiratory Rate 20 Blood Pressure Blood Pressure [Right Arm] 124/77 Blood Pressure Mean [Right Arm] 92 Blood Pressure Source [Right Arm] Automatic Cuff Blood Pressure Position [Right Arm] Supine 02 Sat by Pulse Oximetry 100 100 Oxygen Delivery Method Simple Mask BiPAP Oxygen Flow Rate (LPM) 8 12/13/23 06:10 12/13/23 06:30 12/13/23 07:00 Temperature Temperature Source Pulse Rate 82 84 80 Pulse Rate [Right Radial] Respiratory Rate Blood Pressure 110/63 106/58 L Blood Pressure [Right Arm] Blood Pressure Mean [Right Arm] Blood Pressure Source [Right Arm] Blood Pressure Position [Right Arm] 02 Sat by Pulse Oximetry 99 96 Oxygen Delivery Method Oxygen Flow Rate (LPM) 12/13/23 07:30 12/13/23 08:10 12/13/23 08:30 Temperature Temperature Source Pulse Rate 71 Pulse Rate [Right Radial] Respiratory Rate 28 H 18 18 Blood Pressure 115/64 117/64 108/58 L Blood Pressure [Right Arm] Blood Pressure Mean [Right Arm] Blood Pressure Source [Right Arm] Blood Pressure Position [Right Arm] 02 Sat by Pulse Oximetry 97 Oxygen Delivery Method Oxygen Flow Rate (LPM) Lab Data Labs: Lab Results 12/13/23 05:35: VBG pH 7.30 L, VBG pCO2 66.3 H, VBG pO2 39.6, VBG HCO3 31.7 H, V BG Total CO2 33.7 H, VBG O2 Saturation 70.5 H, VBG Base Excess 5.2 H, VBG Lactic Acid 2.1 H 12/13/23 05:40: WBC 7.5, RBC 5.01, Hgb 14.2, Hct 45.9, MCV 91.7, MCH 28.3, MCHC 30.9 L, RDW 15.1, Plt Count 218, MPV 7.6, Neut % (Auto) 51.4, Lymph % (Auto) 34.3, [place] % (Auto) 5.7, Eos % (Auto) 7.5, Baso % (Auto) 1.1, Neut # (Auto) 3.8, Lymph # (Auto) 2.6, [place] # (Auto) 0.4, Eos # (Auto) 0.6 H, Baso # (Auto) 0.1, D- Dimer 1.50 H, Sodium 137, Potassium 4.3, Chloride 98, Carbon Dioxide 37 H, Anion Gap 6.3, BUN 12, Creatinine 0.60, Estimated Creat Clear 34, Estimated GFR 97, Est GFR ( Amer) 117, Glucose 101 H, Calcium 8.6, Total Bilirubin 0.5, AST 34, ALT 24, Alkaline Phosphatase 85, Troponin I < 0.01, NT-Pro-B Natriuret Pep 4310 H, Total Protein 7.1, Albumin 3.8, Globulin 3.3 H, Albumin/Globulin Ratio 1.2 12/13/23 06:57: SARS-CoV-2 (PCR) Not detected, Influenza A Untype (PCR) Not detected, Influenza Type B (PCR) Not detected 12/13/23 05:40 12/13/23 05:40 Response Orders (Tests/Meds): ED MEDICATIONS Generic Name Dose Route Start Last Admin Trade Name Freq PRN Reason Stop Dose Admin Enoxaparin Sodium 45 mg 12/13/23 09:00 Enoxaparin 100mg/Ml Syringe 1 mg/kg (45 mg) 01/12/24 08:59 SQ Q12H LISETH Furosemide 40 mg 12/13/23 08:54 Furosemide 40mg/4ml Vial IV 12/13/23 08:55 ONCE ONE Discontinued Medications Generic Name Dose Route Start Last Admin Trade Name Freq PRN Reason Stop Dose Admin Albuterol/Ipratropium 6 ml 12/13/23 05:55 12/13/23 06:10 Ipratropium/Albuterol 3 Ml Neb IH 12/13/23 05:56 6 ml ONCE ONE Administration Furosemide 40 mg 12/13/23 06:48 12/13/23 06:52 Furosemide 40mg/4ml Vial IV 12/13/23 06:49 40 mg ONCE ONE Administration Iopamidol 80 ml 12/13/23 08:09 12/13/23 08:10 Iopamidol-370 (76%);100ml Bottle IV 12/13/23 08:10 80 ml ONCE ONE Administration Sodium Chloride 10 ml 12/13/23 08:09 12/13/23 08:10 Sodium Chloride 0.9% 10ml Syr (Rad Only) IV 12/13/23 08:10 10 ml ONCE ONE Administration Sodium Chloride 50 ml 12/13/23 08:09 12/13/23 08:10 0.9 % Sodium Chloride 50 Ml Vial IV 12/13/23 08:10 50 ml ONCE ONE Administration ORDERS Category Date Time Status CT angio abdomen pelvis Stat Cat Scan 12/13/23 07:34 Completed CTA Chest [CT angio chest PE protocol] Stat Cat Scan 12/13/23 07:34 Completed XR chest portable Stat Exams 12/13/23 05:55 Completed Complete Blood Count Auto Diff Stat Lab 12/13/23 05:40 Completed Comprehensive Metabolic Panel Stat Lab 12/13/23 05:40 Completed D-Dimer Stat Lab 12/13/23 05:40 Completed NT Pro Brain Natriuretic Pep. Stat Lab 12/13/23 05:40 Completed Rapid PCR Covid and Flu A/B Stat Lab 12/13/23 06:57 Completed Troponin I Q3H Lab 12/13/23 05:40 Completed Troponin I Q3H Lab 12/13/23 08:48 Received Troponin I Q3H Lab 12/13/23 12:00 Ordered VBG [Venous Blood Gas] Stat RT 12/13/23 06:03 Ordered Venous Blood Gas Routine RT 12/13/23 05:35 Completed MDM Narrative Medical Decision Narrative: In summary, this 78-year-old female with history of COPD which is a comorbidity of current condition and increases her overall morbidity as well as the amount of data to be reviewed presents to the emergency department today with shortness of breath, complaints of swelling in the legs, rectal bleeding. On initial evaluation patient is hemodynamically stable, afebrile, she is chronically ill- appearing, she has no abdominal tenderness, no maria a rectal bleeding, small hemorrhoid, no anal fissure, lungs with rales bilaterally. Differential diagnosis includes but is not limited to COPD exacerbation, ACS, PE, fluid overload, electrolyte abnormality, dehydration, medication noncompliance, anemia. [id number] bedside ultrasound performed and personally interpreted demonstrates B-lines, no gross wall motion abnormality of the heart or obvious findings of decreased EF. Based on these concerns, I ordered appropriate labs, cardiac workup. ECG personally interpreted demonstrates normal sinus rhythm, rate 84, normal VA and QTc, patient has ST abnormalities however no STEMI. Repeat ECG pending. VBG resulted with hypercarbia and mild lactic acidosis, pH 7.3. Patient is not a great candidate for fluids at this time given her findings of fluid overload on ultrasound and physical exam. Patient is receiving DuoNebs and was placed on BiPAP for respiratory support. Labs personally reviewed demonstrate no leukocytosis or anemia, CMP nonactionable at this time, BNP 4310 which is significantly elevated, patient is receiving IV furosemide. Troponin, D-dimer, occult blood, among other labs are pending. Chest x-ray personally interpreted demonstrates diffuse interstitial changes, findings consistent with pulmonary edema, radiology read pending. Repeat ECG personally interpreted demonstrates normal sinus rhythm, rate 78, normal VA and QTc, no STEMI. Patient handed off to Dr. Manning at physician shift change for further management and disposition. <Mary N Nigel, DO - Last Filed: 12/13/23 08:59> Vital Signs Vital Signs: 12/13/23 05:46 12/13/23 06:10 12/13/23 06:10 Temperature 97.9 F Temperature Source Temporal Artery Scan Pulse Rate 79 Pulse Rate [Right Radial] 84 Respiratory Rate 20 Blood Pressure Blood Pressure [Right Arm] 124/77 Blood Pressure Mean [Right Arm] 92 Blood Pressure Source [Right Arm] Automatic Cuff Blood Pressure Position [Right Arm] Supine 02 Sat by Pulse Oximetry 100 100 Oxygen Delivery Method Simple Mask BiPAP Oxygen Flow Rate (LPM) 8 12/13/23 06:10 12/13/23 06:30 12/13/23 07:00 Temperature Temperature Source Pulse Rate 82 84 80 Pulse Rate [Right Radial] Respiratory Rate Blood Pressure 110/63 106/58 L Blood Pressure [Right Arm] Blood Pressure Mean [Right Arm] Blood Pressure Source [Right Arm] Blood Pressure Position [Right Arm] 02 Sat by Pulse Oximetry 99 96 Oxygen Delivery Method Oxygen Flow Rate (LPM) 12/13/23 07:30 12/13/23 08:10 12/13/23 08:30 Temperature Temperature Source Pulse Rate 71 Pulse Rate [Right Radial] Respiratory Rate 28 H 18 18 Blood Pressure 115/64 117/64 108/58 L Blood Pressure [Right Arm] Blood Pressure Mean [Right Arm] Blood Pressure Source [Right Arm] Blood Pressure Position [Right Arm] 02 Sat by Pulse Oximetry 97 Oxygen Delivery Method Oxygen Flow Rate (LPM) Lab Data Labs: Lab Results 12/13/23 05:35: VBG pH 7.30 L, VBG pCO2 66.3 H, VBG pO2 39.6, VBG HCO3 31.7 H, V BG Total CO2 33.7 H, VBG O2 Saturation 70.5 H, VBG Base Excess 5.2 H, VBG Lactic Acid 2.1 H 12/13/23 05:40: WBC 7.5, RBC 5.01, Hgb 14.2, Hct 45.9, MCV 91.7, MCH 28.3, MCHC 30.9 L, RDW 15.1, Plt Count 218, MPV 7.6, Neut % (Auto) 51.4, Lymph % (Auto) 34.3, [place] % (Auto) 5.7, Eos % (Auto) 7.5, Baso % (Auto) 1.1, Neut # (Auto) 3.8, Lymph # (Auto) 2.6, [place] # (Auto) 0.4, Eos # (Auto) 0.6 H, Baso # (Auto) 0.1, D- Dimer 1.50 H, Sodium 137, Potassium 4.3, Chloride 98, Carbon Dioxide 37 H, Anion Gap 6.3, BUN 12, Creatinine 0.60, Estimated Creat Clear 34, Estimated GFR 97, Est GFR ( Amer) 117, Glucose 101 H, Calcium 8.6, Total Bilirubin 0.5, AST 34, ALT 24, Alkaline Phosphatase 85, Troponin I < 0.01, NT-Pro-B Natriuret Pep 4310 H, Total Protein 7.1, Albumin 3.8, Globulin 3.3 H, Albumin/Globulin Ratio 1.2 12/13/23 06:57: SARS-CoV-2 (PCR) Not detected, Influenza A Untype (PCR) Not detected, Influenza Type B (PCR) Not detected Response Orders (Tests/Meds): ED MEDICATIONS Generic Name Dose Route Start Last Admin Trade Name Freq PRN Reason Stop Dose Admin Enoxaparin Sodium 45 mg 12/13/23 09:00 Enoxaparin 100mg/Ml Syringe 1 mg/kg (45 mg) 01/12/24 08:59 SQ Q12H LISETH Furosemide 40 mg 12/13/23 08:54 Furosemide 40mg/4ml Vial IV 12/13/23 08:55 ONCE ONE Discontinued Medications Generic Name Dose Route Start Last Admin Trade Name Freq PRN Reason Stop Dose Admin Albuterol/Ipratropium 6 ml 12/13/23 05:55 12/13/23 06:10 Ipratropium/Albuterol 3 Ml Neb IH 12/13/23 05:56 6 ml ONCE ONE Administration Furosemide 40 mg 12/13/23 06:48 12/13/23 06:52 Furosemide 40mg/4ml Vial IV 12/13/23 06:49 40 mg ONCE ONE Administration Iopamidol 80 ml 12/13/23 08:09 12/13/23 08:10 Iopamidol-370 (76%);100ml Bottle IV 12/13/23 08:10 80 ml ONCE ONE Administration Sodium Chloride 10 ml 12/13/23 08:09 12/13/23 08:10 Sodium Chloride 0.9% 10ml Syr (Rad Only) IV 12/13/23 08:10 10 ml ONCE ONE Administration Sodium Chloride 50 ml 12/13/23 08:09 12/13/23 08:10 0.9 % Sodium Chloride 50 Ml Vial IV 12/13/23 08:10 50 ml ONCE ONE Administration ORDERS Category Date Time Status CT angio abdomen pelvis Stat Cat Scan 12/13/23 07:34 Completed CTA Chest [CT angio chest PE protocol] Stat Cat Scan 12/13/23 07:34 Completed XR chest portable Stat Exams 12/13/23 05:55 Completed Complete Blood Count Auto Diff Stat Lab 12/13/23 05:40 Completed Comprehensive Metabolic Panel Stat Lab 12/13/23 05:40 Completed D-Dimer Stat Lab 12/13/23 05:40 Completed NT Pro Brain Natriuretic Pep. Stat Lab 12/13/23 05:40 Completed Rapid PCR Covid and Flu A/B Stat Lab 12/13/23 06:57 Completed Troponin I Q3H Lab 12/13/23 05:40 Completed Troponin I Q3H Lab 12/13/23 08:48 Received Troponin I Q3H Lab 12/13/23 12:00 Ordered VBG [Venous Blood Gas] Stat RT 12/13/23 06:03 Ordered Venous Blood Gas Routine RT 12/13/23 05:35 Completed MDM Narrative Medical Decision Narrative: In summary, this 78-year-old female with history of COPD which is a comorbidity of current condition and increases her overall morbidity as well as the amount of data to be reviewed presents to the emergency department today with shortness of breath, complaints of swelling in the legs, rectal bleeding. On initial evaluation patient is hemodynamically stable, afebrile, she is chronically ill- appearing, she has no abdominal tenderness, no maria a rectal bleeding, small hemorrhoid, no anal fissure, lungs with rales bilaterally. Differential diagnosis includes but is not limited to COPD exacerbation, ACS, PE, fluid overload, electrolyte abnormality, dehydration, medication noncompliance, anemia. [id number] bedside ultrasound performed and personally interpreted demonstrates B-lines, no gross wall motion abnormality of the heart or obvious findings of decreased EF. Based on these concerns, I ordered appropriate labs, cardiac workup. ECG personally interpreted demonstrates normal sinus rhythm, rate 84, normal VA and QTc, patient has ST abnormalities however no STEMI. Repeat ECG pending. VBG resulted with hypercarbia and mild lactic acidosis, pH 7.3. Patient is not a great candidate for fluids at this time given her findings of fluid overload on ultrasound and physical exam. Patient is receiving DuoNebs and was placed on BiPAP for respiratory support. Labs personally reviewed demonstrate no leukocytosis or anemia, CMP nonactionable at this time, BNP 4310 which is significantly elevated, patient is receiving IV furosemide. Troponin, D-dimer, occult blood, among other labs are pending. Chest x-ray personally interpreted demonstrates diffuse interstitial changes, findings consistent with pulmonary edema, radiology read pending. Repeat ECG personally interpreted demonstrates normal sinus rhythm, rate 78, normal VA and QTc, no STEMI. Patient handed off to Dr. Manning at physician shift change for further management and disposition. DO Nigel: I assumed care of the patient at 0700. Patient is tolerating BiPAP very well, which she was initiated on for signs of volume overload. BNP is elevated. D-dimer was elevated, so I did order CT PE protocol. Given her right red rib per rectum, I also ordered CT angiogram of the abdomen and pelvis. Abdomen pelvis is reassuring, but she does have pleural effusions noted on CT PE as well as a subsegmental nonocclusive PE. I gave her 40 mg of IV Lasix as well as subcu Lovenox. Ultimately given CHF exacerbation and comorbidities, I feel the patient would benefit from admission for continued monitoring and workup. I had an interactive discussion with the hospitalist who agreed to admit the patient.
[2023-12-13] MEDS: IPRATROPIUM/ALBUTEROL 3 ML NEB 6 ML IH (06:10)
[2023-12-13 06:27] LABS: Basophils # 0.1 K/mm3 (0-0.2); Basophils % 1.1 % (0.1-2.0); Eosinophils # 0.6 K/mm3 (0.0-0.4); Eosinophils % 7.5 % (0.1-12.0); Hematocrit 45.9 % (37.0-47.0); Hemoglobin 14.2 g/dL (12.2-16.2); Lymphocytes # 2.6 K/mm3 (0.7-4.5); Lymphocytes % 34.3 % (10-50); Mean Corpuscular HGB Conc 30.9 g/dL (31.8-35.4); Mean Corpuscular Hemoglobin 28.3 pg (27.0-31.2); Mean Corpuscular Volume 91.7 fl (81-99); Mean Platelet Volume 7.6 fl (7.4-10.4); Monocytes # 0.4 K/mm3 (0.1-1.0); Monocytes % 5.7 % (1.7-9.3); Neutrophils # 3.8 K/mm3 (1.8-7.8); Neutrophils % 51.4 % (37.0-80.0); Platelet Count 218 K/mm3 (142-424); Red Blood Count 5.01 M/mm3 (4.20-5.40); Red Cell Distribution Width 15.1 % (11.5-17.5); White Blood Count 7.5 K/mm3 (4.8-10.8)
[2023-12-13 06:30] LABS: Albumin Level 3.8 g/dl (3.5-5.0); Chloride 98 mmol/L (98-107); Potassium 4.3 mmoL/L (3.5-5.1); Sodium 137 mmol/L (136-145)
[2023-12-13 06:32] LABS: Blood Urea Nitrogen 12 mg/dl (7-17); Creatinine Clearance Estimated 34 mL/min (50-200); Estimated Glomerular Filt Rate 97 ml/min (>60); GFR (African American) 117 ML/MIN (>60)
[2023-12-13 06:33] LABS: Alanine Aminotransferase 24 U/L (12-78); Albumin/Globulin Ratio 1.2 (1.1-1.8); Alkaline Phosphatase 85 U/L (38-126); Anion Gap 6.3 mEq/L (5-15); Aspartate Amino Transferase 34 U/L (14-36); Bilirubin,Total 0.5 mg/dl (0.2-1.3); Calcium 8.6 mg/dl (8.4-10.2); Carbon Dioxide 37 mmol/L (22.0-30.0); Globulin 3.3 g/dL (1.3-3.2); Glucose 101 mg/dl (74-100); Total Protein,Serum 7.1 g/dl (6.3-8.2)
[2023-12-13 06:42] LABS: NT Pro Brain Natriuretic Pep. 4310 pg/mL (0-450)
[2023-12-13] MEDS: FUROSEMIDE 40MG/4ML VIAL 40 MG IV ×3 (06:52→16:34)
--- NOTE | 2023-12-13 06:54 | ECG_ITS ---
APPROVED REPORT Exam: Resting ECG HR:78 bpm ECG Measurements Heart Rate 78 AXES HI 172 P 152 QRSd 93 QRS -66 QT 389 T 120 QTc 422 Conclusion Sinus rhythm POSSIBLE LEFT ATRIAL ENLARGEMENT [-0.1mV P-WAVE IN V1/V2] LEFT AXIS DEVIATION [QRS AXIS < -30] POSSIBLE ANTERIOR MYOCARDIAL INFARCTION , OF INDETERMINATE AGE [30 ms Q WAVE IN V3/V4, OR R < 0.2 mV IN V4] No STEMI Electronically signed by : AYANA NAJERA, 12/14/2023 06:34:50
[2023-12-13 06:55] LABS: Troponin I < 0.01 ng/ml (0.00-0.034)
[2023-12-13 07:00] LABS: Coronavirus 19, PCR Not Detected (NotDetected); Influenza A, PCR Not Detected (NotDetected); Influenza B, PCR Not Detected (NotDetected)
--- NOTE | 2023-12-13 07:34 | CT_ITS ---
PROCEDURE INFORMATION: Exam: CTA Chest With Contrast Exam date and time: 12/13/2023 7:57 AM Age: 78 years old Clinical indication: Abnormal findings; Abnormal diagnostic tests; Elevated d-dimer; Additional info: Resp failure with elevated d-dimer TECHNIQUE: Imaging protocol: Computed tomographic angiography of the chest with contrast. Exam focused on the arteries. 3D rendering (Not supervised by radiologist): MIP and/or 3D reconstructed images were created by the technologist. Radiation optimization: All CT scans at this facility use at least one of these dose optimization techniques: automated exposure control; mA and/or kV adjustment per patient size (includes targeted exams where dose is matched to clinical indication); or iterative reconstruction. Contrast material: ISO 370; Contrast volume: 80 ml; Contrast route: INTRAVENOUS (IV); COMPARISON: CT ANGIO CHEST PE PROTOCOL 09/27/2022 1:09 AM FINDINGS: Pulmonary arteries: Non occluding filling defect in small branch to the left lower lobe series 8, image 224, 225 consistent with small pulmonary embolus. Aorta: No aneurysm of the aorta. No dissection of the aorta. Lungs: Moderate panlobular emphysematous changes. Opacities in the lower lobes may represent atelectasis or pneumonia. Pleural spaces: Small bilateral pleural effusions. Heart: Unremarkable. No cardiomegaly. No pericardial effusion. Coronary arteries: Coronary artery calcifications may indicate coronary artery disease. Lymph nodes: Unremarkable. No enlarged lymph nodes. Bones/joints: Unremarkable. No acute fracture. Soft tissues: Unremarkable. IMPRESSION: 1. Non occluding filling defect in small branch to the left lower lobe series 8, image 224, 225 consistent with small pulmonary embolus. 2. Small bilateral pleural effusions. 3. Opacities in the lower lobes may represent atelectasis or pneumonia. COMMENTS: The presence of pulmonary emphysema on CT is an independent risk factor for lung cancer. In the absence of a history or active diagnosis of lung cancer, it is recommended that this patient with emphysema be evaluated for enrollment in a low dose CT lung cancer screening program.
--- NOTE | 2023-12-13 07:34 | CT_ITS ---
PROCEDURE INFORMATION: Exam: CTA Abdomen and Pelvis With Contrast Exam date and time: 12/13/2023 7:57 AM Age: 78 years old Clinical indication: Other: Brbpr; Additional info: Gi bleed, bright red blood per rectum TECHNIQUE: Imaging protocol: Computed tomographic angiography of the abdomen and pelvis with contrast. Exam focused on the arteries. 3D rendering (Not supervised by radiologist): MIP and/or 3D reconstructed images were created by the technologist. Radiation optimization: All CT scans at this facility use at least one of these dose optimization techniques: automated exposure control; mA and/or kV adjustment per patient size (includes targeted exams where dose is matched to clinical indication); or iterative reconstruction. Contrast material: ISO 370; Contrast volume: 80 ml; Contrast route: INTRAVENOUS (IV); COMPARISON: CT ANGIO CHEST PE PROTOCOL 12/13/2023 7:57 AM FINDINGS: Aorta: No aortic aneurysm. No aortic dissection. Celiac trunk and mesenteric arteries: No occlusion or significant stenosis. Renal arteries: No occlusion or significant stenosis. Right iliac arteries: No occlusion or significant stenosis. Left iliac arteries: No occlusion or significant stenosis. Liver: No mass. Gallbladder and biliary ducts: Cholecystectomy Pancreas: Unremarkable. No mass. No ductal dilation. Spleen: Unremarkable. No splenomegaly. Adrenal glands: Unremarkable. No mass. Kidneys and ureters: Unremarkable. No solid mass. No hydronephrosis. Stomach and bowel: Diverticulosis in the descending colon and rectosigmoid. No maria a diverticulitis No obstruction. No mucosal thickening. Appendix: No evidence of appendicitis. Intraperitoneal space: Small amount of ascites in the abdomen. Lymph nodes: Unremarkable. No enlarged lymph nodes. Urinary bladder: Unremarkable. No mass. Reproductive: Unremarkable as visualized. Bones/joints: No acute fracture. Soft tissues: Left inguinal hernia contains bowel. Series 3, image 85- 100. Other findings: No evidence of gastrointestinal hemorrhage. Please refer to the CT chest for findings in the chest IMPRESSION: 1. No evidence of gastrointestinal hemorrhage. 2. Left inguinal hernia contains bowel. Series 3, image 85- 100. 3. Small amount of ascites in the abdomen.
[2023-12-13] MEDS: 0.9 % SODIUM CHLORIDE 50 ML VIAL IV (08:10)
[2023-12-13] MEDS: IOPAMIDOL-370 (76%);100ML BOTTLE 80 ML IV (08:10)
[2023-12-13] MEDS: SODIUM CHLORIDE 0.9% 10ML SYR (RAD ONLY) 10 ML IV (08:10)
[2023-12-13] MEDS: ENOXAPARIN 60MG/0.6ML SYRINGE 45 MG SQ ×2 (09:01→20:34)
--- NOTE | 2023-12-13 09:01 | P.HP_ITS ---
History of Present Illness *Admission Date: 12/13/23 *Reason for visit:: respiratory distress *History of present illness: Ms. Miller is a 78-year-old female with history of COPD and tobacco abuse. She presented to the ER because of increased swelling in her feet over the past few weeks and increased cough for the past 2 to 3 days. Normally wears 3 L of oxygen at baseline. On arrival to the ER she complains of increased dyspnea with exertion. Difficulty laying flat. She also reports having had an episode of bright red blood with a bowel movement. Occasionally painful over the past day or 2. She denies any maria a fever, nausea or vomiting. On the medication for her heart fluid management. Has been using her nebulizer at home. Workup in the ER concerning for hyperexpansion lung maravilla. Blood gas showing hypercapnic respiratory failure with pH of 7.3. Initiated on BiPAP. Medicine consulted for admission and further management. Per chart review, EMS administered 1 DuoNeb as well as 125 mg of Solu-Medrol and route. On evaluation, patient is diuresing well. She was administered Lasix in the ER. She is getting up to bedside commode on evaluation. Awaiting repeat blood gas to monitor for response to BiPAP. Labs concerning for elevated BNP of 4000. Normal white count, kidney function normal with creatinine 0.6 and BUN of 12, troponin negative initially. EKG with no ischemic changes. CTA obtained does show small subsegmental PE. [facility] Disclaimer: The information contained in this section may have been updated after the patient was seen, as this information can be updated by other users. Medical History Bronchiectasis Pulmonary nodule Chronic respiratory failure with hypoxia On home O2 Smoker COPD (chronic obstructive pulmonary disease) Family History Other Family history of stroke Social History Smoking Status: Current every day smoker alcohol intake: never current occupational status: retired Travel in the last 8 weeks: None Other Medical History Have you received the Flu Vaccine for this season: No Have you received the Pneumonia Vaccine: No Review of Systems Review of Systems Review of systems (narrative): 14 point review of systems performed, pertinent positives and negatives as per HPI Meds Home Medications and Allergies Home Medications ?Medication ?Instructions ?Recorded ?Confirmed ?Type conjugated estrogens 0.625 mg/gram 0.625 mg vaginal DAILY 09/27/22 12/13/23 History vaginal cream (Premarin) New Prescriptions to Start Prescriptions: Allergies Allergy/AdvReac Type Severity Reaction Status Date / Time No Known Allergies Allergy Verified 09/27/22 00:58 Exam Data for Last 24 hours Vital signs and Labs for Last 24 Hours: Temp Pulse Resp BP Pulse Ox O2 Del Method O2 Flow Rate 97.9 F 71 18 108/58 L 97 BiPAP 8 12/13/23 05:46 12/13/23 07:30 12/13/23 08:30 12/13/23 08:30 12/13/23 07:30 12/13/23 06:10 12/13/23 05:46 FiO2 40 12/13/23 06:10 Laboratory Results - last 24 hr 12/13/23 05:35: VBG pH 7.30 L, VBG pCO2 66.3 H, VBG pO2 39.6, VBG HCO3 31.7 H, VBG Total CO2 33.7 H, VBG O2 Saturation 70.5 H, VBG Base Excess 5.2 H, VBG Lactic Acid 2.1 H 12/13/23 05:40: WBC 7.5, RBC 5.01, Hgb 14.2, Hct 45.9, MCV 91.7, MCH 28.3, MCHC 30.9 L, RDW 15.1, Plt Count 218, MPV 7.6, Neut % (Auto) 51.4, Lymph % (Auto) 34.3, [place] % (Auto) 5.7, Eos % (Auto) 7.5, Baso % (Auto) 1.1, Neut # (Auto) 3.8, Lymph # (Auto) 2.6, [place] # (Auto) 0.4, Eos # (Auto) 0.6 H, Baso # (Auto) 0.1, D- Dimer 1.50 H, Sodium 137, Potassium 4.3, Chloride 98, Carbon Dioxide 37 H, Anion Gap 6.3, BUN 12, Creatinine 0.60, Estimated Creat Clear 34, Estimated GFR 97, Est GFR ( Amer) 117, Glucose 101 H, Calcium 8.6, Total Bilirubin 0.5, AST 34, ALT 24, Alkaline Phosphatase 85, Troponin I < 0.01, NT-Pro-B Natriuret Pep 4310 H, Total Protein 7.1, Albumin 3.8, Globulin 3.3 H, Albumin/Globulin Ratio 1.2 12/13/23 06:57: SARS-CoV-2 (PCR) Not detected, Influenza A Untype (PCR) Not detected, Influenza Type B (PCR) Not detected I & O for Last 24 hours: Intake & Output 12/10/23 12/11/23 12/12/23 12/13/23 23:59 23:59 23:59 23:59 Weight 45.359 kg Constitutional Constitutional: mild distress, thin, chronically ill appearing and disheveled *Routine HEENT Exam Head: Present normocephalic Eye: Present EOMI ENT: Present mucous membranes moist *Routine Neck Exam Neck: Present full ROM Routine Chest/Breast/Axilla Exam Comments: Barrel chested *Routine Respiratory Exam Respiratory: Present accessory muscle use, prolonged expiratory phase, respiratory distress, rhonchi, wheezes and diminished air movement; Absent crackles *Routine Cardiovascular Exam Cardiovascular: Present RRR *Routine Abdominal Exam Abdominal: Present soft and normoactive bowel sounds; Absent tenderness *Routine Rectal Exam Rectal:: deferred *Routine Genitalia Exam Genitalia:: deferred *Routine Extremities Exam Extremities: Present edema (3+ to knees) and full ROM *Routine Skin Exam Skin: Present intact *Routine Neurological Exam Neurological: Present alert, oriented X3 and moving all extremities; Absent altered mental status Assessment and Plan *Assessment and plan (1) Acute CHF: Status: Acute Category: Medical Code(s): I50.9 - Heart failure, unspecified (2) Acute respiratory failure with hypoxia and hypercarbia: Status: Resolved Category: Medical Code(s): J96.01 - Acute respiratory failure with hypoxia; J96.02 - Acute respiratory failure with hypercapnia (3) Pulmonary embolism: Status: Acute Category: Medical Code(s): I26.99 - Other pulmonary embolism without acute cor pulmonale (4) Acute exacerbation of chronic obstructive pulmonary disease (COPD): Status: Acute Category: Medical Code(s): J44.1 - Chronic obstructive pulmonary disease with (acute) exacerbation (5) Tobacco abuse: Status: Acute Category: Medical Code(s): Z72.0 - Tobacco use (6) BRBPR (bright red blood per rectum): Status: Acute Category: Medical Code(s): K62.5 - Hemorrhage of anus and rectum (7) Cachexia: Status: Acute Category: Medical Code(s): R64 - Cachexia Plan 78 year old female presented to the ED via ems for hypoxia and respiratory distress. Found to have some mild hypercapnic respiratory failure with COPD exacerbation and PE. Concern for CHF exacerbation versus new diagnosis of CHF. Medicine consulted by ER physician, discussed case, requesting admission for diuresis. I agreed to admit for further management. Admitted to stepdown on BiPAP. In moderate distress. Problems addressed as follows: Acute CHF -No reported history however with her extensive COPD history, in light of her elevated BNP of 4000, strong concern for component of diastolic heart failure plus or minus systolic heart failure. -Will diurese aggressively, received Lasix in the ER. Monitoring output. -1.4 L so far since admission. Will continue Lasix 40 mg IV twice daily. -Wean oxygen as tolerated. Goal sats greater 90%. Currently on 3 L -Echocardiogram ordered, pending -Strict monitoring of electrolytes given aggressive diuresis necessitating close monitoring of kidney function as well. -BMP ordered for this evening, CBC, CMP, magnesium ordered for the morning - KidneyPotassium 4.3, function normal with BUN 12, creatinine 0.6. -Troponin less than 0.01 ACUTE RESPIRATORY FAILURE WITH HYPOXIA AND HYPERCARBIA COPD exacerbation -Presented to ED with decreased saturations. Placed on BiPAP due to pH of 7.3 with pCO2 in the 60s. Repeat ABG obtained after arriving to the floor, pCO2 still elevated in the 70s. pH 7.35 on ABG. Continue BiPAP with EPAP of 6, IPAP 16, rate of 18, FiO2 40%. -Continue DuoNebs every 6 hours scheduled -Budesonide twice daily -Initiate Trelegy -Per my review of chest x-ray, hyperexpansion of lung maravilla with no focal consolidation. -Received methylprednisolone [address] to the hospital. Continue 40 mg prednisone daily - White count normal at 7.5 Pulmonary emboli -Noted on CT of chest. Per my review appears subsegmental. Will need anticoagulation. Initiate Lovenox 1 mg/kg twice daily. Monitor for bleeding given report of bright red blood. Suspect hemorrhoidal bleed. If hemoglobin remained stable with no active bleeding, will transition to Eliquis for treatment TOBACCO ABUSE: nicotine patch PRN FULL CODE -awaiting to hear from POA regular diet Lovenox 1 mg/kg twice daily
--- NOTE | 2023-12-13 09:14 | HMH.PHAINT1 ---
Pharmacy Intervention Comments: MEDICATION RECONCILIATION COMPLETED ON PATIENT USING EXTERNAL FILL HISTORY FROM PHARMACY. -PARVIZ MATTHEWS, CAITLYND
--- NOTE | 2023-12-13 09:15 | PC.NURSE ---
Report called to Cindy BOWLING
[2023-12-13 09:26] LABS: Troponin I < 0.01 ng/ml (0.00-0.034)
--- NOTE | 2023-12-13 09:42 | PC.NURSE ---
pt arrived to floor via stretcher @[phone]
[2023-12-13 09:52] LABS: Reflex Lactic Add Lactic Reflex
[2023-12-13 11:04] LABS: ABG Base Excess 15.7 mmol/L (-2.4-2.3); ABG HCO3 41.3 mmhg (22.0-26.0); ABG Oxygen Saturation 95 % (90-100); ABG PH 7.35 mmol/L (7.35-7.45); ABG PO2 74.2 mmhg (80-100); ABG TCO2 43.7 mmhg (23-27)
[2023-12-13 11:06] LABS: Allen's Test Acceptable; Oxygen 3LPM NC %; Source Right Radial
[2023-12-13 11:07] LABS: ABG PCO2 76.6 mmhg (35.0-45.0)
[2023-12-13] MEDS: predniSONE 20MG TAB 40 MG PO (12:31)
[2023-12-13 12:38] LABS: Troponin I < 0.01 ng/ml (0.00-0.034)
[2023-12-13] MEDS: FLUTICASONE/UMECLIDIN/VILANTER 100/62.5/25MCG INHALER 1 PUFF IH (12:51)
[2023-12-13 13:39] LABS: Lactic Acid Follow Up (RFLX 1) 1.2 mmol/L (0.7-2.1)
[2023-12-13] MEDS: IPRATROPIUM/ALBUTEROL 3 ML NEB IH ×3 (13:57→22:07)
--- NOTE | 2023-12-13 16:02 | PC.NURSE ---
PT HAS CALLED OUT MULTIPLE TIMES SAYING HER BiPAP MASK IS TOO TIGHT. PT HAS BEEN EDUCATED MULTIPLE TIMES THAT THE MASK HAS TO BE TIGHT TO HAVE A COMPLETE SEAL AROUND HER MOUTH AND NOSE. RT CALLED TO BEDSIDE FOR RE-EDUCATION AGAIN AND TO ADJUST MASK IF POSSIBLE.
[2023-12-13 17:24] LABS: Chloride 90 mmol/L (98-107); Potassium 3.7 mmoL/L (3.5-5.1); Sodium 136 mmol/L (136-145)
[2023-12-13 17:27] LABS: Blood Urea Nitrogen 14 mg/dl (7-17); Calcium 8.3 mg/dl (8.4-10.2); Creatinine Clearance Estimated 38 mL/min (50-200); Estimated Glomerular Filt Rate 61 ml/min (>60); GFR (African American) 73 ML/MIN (>60); Glucose 137 mg/dl (74-100)
[2023-12-13 17:28] LABS: Anion Gap 9.7 mEq/L (5-15); Carbon Dioxide > 40 mmol/L (22.0-30.0); Magnesium 1.8 mg/dl (1.6-2.3)
[2023-12-13] MEDS: BUDESONIDE 0.5MG/2ML NEB 0.5 MG IH (18:14)
[2023-12-13] MEDS: MAGNESIUM SULFATE IN WATER 2 GM/50 ML PIGGYBACK IV (19:03)
[2023-12-13] MEDS: ACETAMINOPHEN 325MG TAB 650 MG PO (23:00)
[2023-12-14] VITALS (19 sets, daily range): BP systolic 92–130; BP diastolic 47–74; PULSE 67–95; RESP 17–24; TEMP 36.4–37.6; O2SAT 3–98; BMI 17.6
--- NOTE | 2023-12-14 05:41 | PC.NURSE ---
Pt has been cooperative with Bipap throughout night. On 3 L nc while awake. Tolerating well with sat >90%. Lung sounds diminished. Pt c/o her feet hurting 1x during shift and Tylenol was ordered and administered per MAY. Pt ambulates to BSC with 1 person assist. Call light within reach.
[2023-12-14] MEDS: IPRATROPIUM/ALBUTEROL 3 ML NEB IH ×5 (06:10→21:57)
[2023-12-14] MEDS: BUDESONIDE 0.5MG/2ML NEB 0.5 MG IH ×2 (06:10→18:25)
--- NOTE | 2023-12-14 06:51 | P.EN_ITS ---
Problem: Received a phone call from the nurse on the floor that she was not able to get the patient to wait. Patient had been on BiPAP sleeping comfortably starting at about 11 PM. I came down to the room to see the patient, had to stimulate her move her legs rub her belly and finally she started to move her eye, then woke up and within just 30 seconds or so was alert oriented and ex pressing she was having no problems. Monitor shows a regular sinus rhythm, O2 sats on BiPAP are 97% Exam: After period of time of about 5 minutes patient was able to be awoken and is at her baseline at this time. Lung sounds are diminished but clear BiPAP is in place. Saturations 97% and in sinus rhythm with a normal rate Plan: Will continue to monitor the patient went ahead and got an ABG to see what her CO2 levels were since they were high before being placed upon the BiPAP last night. Do feel that the patient may have just been that deeply asleep it took a while to wake her up, I see that she is at her normal baseline that she was at last night before she went to sleep
[2023-12-14 06:57] LABS: ABG Base Excess 14.4 mmol/L (-2.4-2.3); ABG Oxygen Saturation 97 % (90-100); ABG PH 7.35 mmol/L (7.35-7.45); ABG PO2 91.5 mmhg (80-100); ABG TCO2 42.3 mmhg (23-27)
[2023-12-14 06:59] LABS: Oxygen 40% Bipap16/6 %
[2023-12-14 07:00] LABS: Allen's Test Acceptable; Source Right Radial; Vent Rate 18
[2023-12-14 07:03] LABS: ABG PCO2 73.6 mmhg (35.0-45.0)
[2023-12-14 07:15] LABS: Basophils # 0.1 K/mm3 (0-0.2); Basophils % 0.8 % (0.1-2.0); Eosinophils % 0.5 % (0.1-12.0); Hematocrit 38.1 % (37.0-47.0); Lymphocytes # 1.9 K/mm3 (0.7-4.5); Lymphocytes % 22.6 % (10-50); Mean Corpuscular HGB Conc 31.6 g/dL (31.8-35.4); Mean Corpuscular Hemoglobin 28.2 pg (27.0-31.2); Mean Corpuscular Volume 89.4 fl (81-99); Mean Platelet Volume 7.3 fl (7.4-10.4); Monocytes # 0.6 K/mm3 (0.1-1.0); Monocytes % 6.5 % (1.7-9.3); Neutrophils % 69.7 % (37.0-80.0); Platelet Count 202 K/mm3 (142-424); Red Blood Count 4.27 M/mm3 (4.20-5.40); White Blood Count 8.6 K/mm3 (4.8-10.8)
[2023-12-14 07:45] LABS: Alanine Aminotransferase 24 U/L (12-78); Albumin Level 3.3 g/dl (3.5-5.0); Albumin/Globulin Ratio 1.2 (1.1-1.8); Alkaline Phosphatase 66 U/L (38-126); Aspartate Amino Transferase 30 U/L (14-36); Bilirubin,Total 0.4 mg/dl (0.2-1.3); Blood Urea Nitrogen 17 mg/dl (7-17); Calcium 8.1 mg/dl (8.4-10.2); Chloride 92 mmol/L (98-107); Creatinine Clearance Estimated 38 mL/min (50-200); Estimated Glomerular Filt Rate 81 ml/min (>60); GFR (African American) 98 ML/MIN (>60); Globulin 2.8 g/dL (1.3-3.2); Glucose 94 mg/dl (74-100); Magnesium 2.2 mg/dl (1.6-2.3); Potassium 3.9 mmoL/L (3.5-5.1); Sodium 131 mmol/L (136-145); Total Protein,Serum 6.1 g/dl (6.3-8.2)
[2023-12-14 08:00] LABS: Anion Gap -0.1 mEq/L (5-15); Carbon Dioxide 43 mmol/L (22.0-30.0)
--- NOTE | 2023-12-14 08:48 | EXP.ACUTE.PN ---
Subjective *Date: 12/14/23 *Time: 14:50 Interval history: Patient did well overnight. Wore BiPAP. Blood gas this morning shows normal pH, continues to have hypercapnia. Appears compensated however. No nausea or vomiting. Alert and oriented x 3. Tolerating 3 L oxygen when not on BiPAP. Frail in appearance. Ambulating with help from nursing. Medical Exam Vital signs and Labs for Last 24 Hours: Vital Signs Temp Pulse Pulse Pulse Resp BP BP 12/14/23 08:44 12/14/23 07:00 12/14/23 06:10 68 12/14/23 06:10 70 12/14/23 06:10 12/14/23 06:10 12/14/23 06:00 81 17 109/61 L 12/14/23 05:00 12/14/23 04:00 74 12/14/23 04:00 67 18 96/60 L 12/14/23 04:00 12/14/23 03:00 12/14/23 02:20 12/14/23 02:00 75 17 96/55 L 12/14/23 01:00 12/14/23 00:00 75 12/14/23 00:00 97.5 F L 74 18 96/47 L 12/13/23 23:00 12/13/23 22:36 12/13/23 22:36 73 12/13/23 22:36 72 12/13/23 22:00 79 23 100/60 L 12/13/23 20:46 12/13/23 20:00 87 12/13/23 20:00 12/13/23 20:00 85 15 121/72 12/13/23 19:00 12/13/23 18:35 12/13/23 18:35 77 12/13/23 18:35 76 12/13/23 18:00 80 20 102/58 L 12/13/23 17:00 12/13/23 16:00 75 12/13/23 16:00 12/13/23 16:00 98.1 F 12/13/23 15:00 12/13/23 14:24 12/13/23 14:00 77 20 96/56 L 12/13/23 13:58 72 12/13/23 13:58 66 12/13/23 13:58 12/13/23 12:55 12/13/23 12:00 70 12/13/23 11:59 97.8 F 12/13/23 11:43 12/13/23 11:00 12/13/23 10:40 81 12/13/23 10:00 97.5 F L 78 14 120/62 12/13/23 09:42 98.7 F 72 18 112/74 Pulse Ox O2 Del Method O2 Flow Rate FiO2 12/14/23 08:44 Nasal Cannula 12/14/23 07:00 BiPAP 12/14/23 06:10 12/14/23 06:10 12/14/23 06:10 96 BiPAP 40 12/14/23 06:10 40 12/14/23 06:00 90 L BiPAP 12/14/23 05:00 BiPAP 12/14/23 04:00 12/14/23 04:00 98 BiPAP 12/14/23 04:00 97 BiPAP 12/14/23 03:00 BiPAP 12/14/23 02:20 40 12/14/23 02:00 97 BiPAP 12/14/23 01:00 BiPAP 12/14/23 00:00 12/14/23 00:00 95 BiPAP 12/13/23 23:00 BiPAP 12/13/23 22:36 40 12/13/23 22:36 12/13/23 22:36 12/13/23 22:00 92 L Nasal Cannula 3 12/13/23 20:46 Nasal Cannula 3 12/13/23 20:00 12/13/23 20:00 91 L Nasal Cannula 3 12/13/23 20:00 90 L Nasal Cannula 3 12/13/23 19:00 Nasal Cannula 3 12/13/23 18:35 Nasal Cannula 3 32 12/13/23 18:35 12/13/23 18:35 12/13/23 18:00 93 L Nasal Cannula 3 12/13/23 17:00 Nasal Cannula 3 12/13/23 16:00 12/13/23 16:00 Nasal Cannula 3 12/13/23 16:00 12/13/23 15:00 BiPAP 12/13/23 14:24 40 12/13/23 14:00 91 L BiPAP 12/13/23 13:58 12/13/23 13:58 12/13/23 13:58 96 Nasal Cannula 3 12/13/23 12:55 Nasal Cannula 3 12/13/23 12:00 12/13/23 11:59 12/13/23 11:43 40 12/13/23 11:00 Nasal Cannula 4 12/13/23 10:40 92 L Nasal Cannula 3 12/13/23 10:00 94 L Nasal Cannula 12/13/23 09:42 BiPAP Intake and Output 12/13/23 12/14/23 12/14/23 23:59 07:59 15:59 Intake Total 540 / 860 50 / 50 Output Total 1300 / 3000 0 / 0 Balance -760 / -2140 50 / 50 Intake: Intake, Oral Amount 540 / 810 Intake, Total IV Amount 50 / 50 Magnesium Sulfate in Water 2 gm 50 / 50 In 50 ml @ 50 mls/hr IV ONCE ONE Rx#:[id number] Output: Output, Urine Amount 1300 / 3000 0 / 0 Other: Number of Unmeasured Voids 1 1 Weight 50.984 kg Patient Weight 12/14/23 23:59 Weight 50.984 kg Laboratory Results - last 24 hr 12/13/23 08:48: Troponin I < 0.01 12/13/23 10:50: Specimen Source Right radial, O2 % 3lpm nc, ABG pH 7.35, ABG pCO2 76.6 H, ABG pO2 74.2 L, ABG HCO3 41.3 H, ABG Total CO2 43.7 H, ABG O2 Saturation 95, ABG Base Excess 15.7 H, Adin Test Acceptable 12/13/23 12:00: Troponin I < 0.01 12/13/23 13:20: Lactate 1.2 12/13/23 17:00: Sodium 136, Potassium 3.7, Chloride 90 L, Carbon Dioxide > 40 H*, Anion Gap 9.7, BUN 14, Creatinine 0.90 D, Estimated Creat Clear 38, Estimated GFR 61, Est GFR ( Amer) 73 D, Glucose 137 H D, Calcium 8.3 L, Magnesium 1.8 12/14/23 06:47: WBC 8.6, RBC 4.27, Hgb 12.0 L, Hct 38.1, MCV 89.4, MCH 28.2, MCHC 31.6 L, RDW 15.0, Plt Count 202, MPV 7.3 L, Neut % (Auto) 69.7, Lymph % (Auto) 22.6, [place] % (Auto) 6.5, Eos % (Auto) 0.5, Baso % (Auto) 0.8, Neut # (Auto) 6.0, Lymph # (Auto) 1.9, [place] # (Auto) 0.6, Eos # (Auto) 0.0, Baso # (Auto) 0.1, Sodium 131 L, Potassium 3.9, Chloride 92 L, Carbon Dioxide 43 H*, Anion Gap -0.1 L, BUN 17, Creatinine 0.70 D, Estimated Creat Clear 38, Estimated GFR 81, Est GFR ( Amer) 98 D, Glucose 94 D, Calcium 8.1 L, Magnesium 2.2 D, Total Bilirubin 0.4, AST 30, ALT 24, Alkaline Phosphatase 66, Total Protein 6.1 L, Albumin 3.3 L D, Globulin 2.8, Albumin/Globulin Ratio 1.2 12/14/23 06:51: Specimen Source Right radial, O2 % 40% bipap16/6, ABG pH 7.35, ABG pCO2 73.6 H, ABG pO2 91.5, ABG HCO3 40.0 H, ABG Total CO2 42.3 H, ABG O2 Saturation 97, ABG Base Excess 14.4 H, Adin Test Acceptable, Vent Rate 18 I & O for Labs for Last 24 Hours: Intake & Output 12/11/23 12/12/23 12/13/23 12/14/23 23:59 23:59 23:59 23:59 Intake Total 810 / 860 50 / 50 Output Total 3000 / 3000 0 / 0 Balance -2190 / -2140 50 / 50 Weight 51.12 kg 50.984 kg Constitutional: Present no acute distress, cachectic, chronically ill appearing and cooperative Head: Present atraumatic and normocephalic ENT: Present normal exam Respiratory: Present accessory muscle use, prolonged expiratory phase, rhonchi and diminished air movement; Absent wheezes or crackles Cardiac: Present Reg Rate and Rhythm GI: Present soft and normal bowel sounds; Absent distention or tenderness Extremities: Present normal inspection and full ROM Skin: Present intact; Absent erythema Neuro: Present Grossly Intact, alert, awake, oriented x 3 and moves all extremities Additional Findings:: Prominent thoracic kyphosis Assessment and Plan *Assessment and plan (1) Acute CHF: Status: Acute Category: Medical Code(s): I50.9 - Heart failure, unspecified (2) Acute respiratory failure with hypoxia and hypercarbia: Status: Resolved Category: Medical Code(s): J96.01 - Acute respiratory failure with hypoxia; J96.02 - Acute respiratory failure with hypercapnia (3) Pulmonary embolism: Status: Acute Category: Medical Code(s): I26.99 - Other pulmonary embolism without acute cor pulmonale (4) Acute exacerbation of chronic obstructive pulmonary disease (COPD): Status: Acute Category: Medical Code(s): J44.1 - Chronic obstructive pulmonary disease with (acute) exacerbation (5) Tobacco abuse: Status: Acute Category: Medical Code(s): Z72.0 - Tobacco use (6) BRBPR (bright red blood per rectum): Status: Acute Category: Medical Code(s): K62.5 - Hemorrhage of anus and rectum (7) Cachexia: Status: Acute Category: Medical Code(s): R64 - Cachexia Plan 78 year old female presented to the ED via ems for hypoxia and respiratory distress. Found to have some mild hypercapnic respiratory failure with COPD exacerbation and PE. Concern for CHF exacerbation versus new diagnosis of CHF. Medicine consulted by ER physician, discussed case, requesting admission for diuresis. I agreed to admit for further management. Condition stabilizing. Continuing to wear BiPAP at night. Will have pulmonology and cardiology evaluate patient in morning. Problems addressed as follows: Acute CHF -No reported history however with her extensive COPD history, in light of her elevated BNP of 4000, strong concern for component of diastolic heart failure plus or minus systolic heart failure. -Continue aggressive diuresis, down to 2 L. Continue Lasix, transition to 40 mg IV daily. -Wean oxygen as tolerated. Goal sats greater 90%. Currently on 3 L -Echocardiogram ordered, pending -Strict monitoring of electrolytes given aggressive diuresis necessitating close monitoring of kidney function as well. -BMP ordered for this evening, CBC, CMP, magnesium ordered for the morning - KidneyPotassium 4.3, function normal with BUN 12, creatinine 0.6. -Troponin less than 0.01 -Cardiology consulted for the morning. ACUTE RESPIRATORY FAILURE WITH HYPOXIA AND HYPERCARBIA COPD exacerbation Mixed respiratory acidosis with metabolic alkalosis compensation. -Presented to ED with decreased saturations. Placed on BiPAP due to pH of 7.3 with pCO2 in the 60s. ABG this morning with pH of 7.35, pCO2 73, compensated with serum bicarb 43. Continue BiPAP with EPAP of 6, IPAP 16, rate of 18, FiO2 40%. -Continue DuoNebs every 6 hours scheduled -Budesonide twice daily -Continue Trelegy 100 inhaler - Continue 40 mg prednisone daily - White count normal at 8.6 Pulmonary emboli -Noted on CT of chest. Per my review appears subsegmental. Will need anticoagulation. Initiated Lovenox 1 mg/kg twice daily. -Slight drop in hemoglobin to 12 today. Monitor for bleeding given report of bright red blood. Suspect hemorrhoidal bleed. If hemoglobin remained stable with no significant blood loss, transition to [facility] for treatment prior to discharge. TOBACCO ABUSE: nicotine patch PRN FULL CODE -awaiting to hear from POA regular diet Lovenox 1 mg/kg twice daily
[2023-12-14] MEDS: acetaZOLAMIDE 250 MG TABLET PO ×2 (09:39→20:37)
[2023-12-14] MEDS: ENOXAPARIN 60MG/0.6ML SYRINGE 50 MG SQ ×2 (09:39→20:37)
[2023-12-14] MEDS: FUROSEMIDE 40MG/4ML VIAL 40 MG IV (09:39)
[2023-12-14] MEDS: predniSONE 20MG TAB 40 MG PO (09:40)
[2023-12-14] MEDS: FLUTICASONE/UMECLIDIN/VILANTER 100/62.5/25MCG INHALER 1 PUFF IH (10:12)
[2023-12-14] MEDS: SENNOSIDES 8.6MG/DOCUSATE 50MG TABLET 1 TAB PO ×2 (10:30→20:37)
[2023-12-14] MEDS: POLYETHYLENE GLYCOL 3350 17 GM PACKET PO (10:30)
--- NOTE | 2023-12-14 10:41 | PC.NURSE ---
lucia douglas said that he would wait until friday for therapy to see patient
--- NOTE | 2023-12-14 17:45 | PC.NURSE ---
PT IS RESTING IN BED. ALERT AND ORIENTED X4. EATING AND DRINKING WELL. O2 SATURATION HAS MAINTAINED 90-94% ON 3 L NC. PT TOLERATED SITTING UP IN THE CHAIR FOR A FEW HOURS THIS SHIFT. VOIDING OVER 4 L THIS SHIFT. LUNG SOUNDS DIMINISHED WITH SCATTERED WHEEZES. ABDOMEN SOFT/NON TENDER WITH HYPOACTIVE BOWEL SOUNDS. 2+ PITTING EDEMA NOTED TO BILATERAL ANKLES. WILL CONTINUE TO MONITOR.
[2023-12-14] MEDS: LEVOFLOXACIN/D5W 750 MG/150 ML 750 MG/150 ML PIGGYBACK 100 MG IV (19:07)
--- NOTE | 2023-12-14 22:38 | PC.NURSE ---
Pt called out stating she wanted her bipap removed after having it on around 5 mins. Pt educated on importance of wearing bipap while asleep but pt continued to refuse. Pt placed back on 3 L nc.
[2023-12-14] MEDS: guaiFENesin 600 MG TAB.ER.12H PO (22:44)
[2023-12-15] VITALS (12 sets, daily range): BP systolic 93–126; BP diastolic 43–84; PULSE 68–100; RESP 16–29; TEMP 36.6–36.8; O2SAT 90–97; BMI 17.2
[2023-12-15] MEDS: IPRATROPIUM/ALBUTEROL 3 ML NEB IH ×3 (02:23→11:02)
--- NOTE | 2023-12-15 05:46 | PC.NURSE ---
Pt is A&OX4 and has remained on 3L nasal cannula most of the night. She was on bipap for around an hour before refusing to wear it. Lung sounds diminished with expiratory wheezing heard throughout and bowel sounds active in all quadrants. 2+ edema noted to BLE. Pt has remained NSR of monitor. Purewick has remained in place with 1100 ml output this shift. Currently asleep with call light within reach.
[2023-12-15 06:44] LABS: Basophils % 0.4 % (0.1-2.0); Eosinophils # 0.1 K/mm3 (0.0-0.4); Eosinophils % 0.5 % (0.1-12.0); Hematocrit 39.5 % (37.0-47.0); Hemoglobin 12.4 g/dL (12.2-16.2); Lymphocytes # 1.6 K/mm3 (0.7-4.5); Lymphocytes % 15.3 % (10-50); Mean Corpuscular HGB Conc 31.5 g/dL (31.8-35.4); Mean Corpuscular Hemoglobin 28.5 pg (27.0-31.2); Mean Corpuscular Volume 90.5 fl (81-99); Mean Platelet Volume 7.5 fl (7.4-10.4); Monocytes # 0.6 K/mm3 (0.1-1.0); Monocytes % 5.8 % (1.7-9.3); Neutrophils # 8.3 K/mm3 (1.8-7.8); Neutrophils % 77.9 % (37.0-80.0); Platelet Count 208 K/mm3 (142-424); Red Blood Count 4.36 M/mm3 (4.20-5.40); Red Cell Distribution Width 15.1 % (11.5-17.5); White Blood Count 10.7 K/mm3 (4.8-10.8)
[2023-12-15 06:52] LABS: Albumin Level 3.5 g/dl (3.5-5.0); Chloride 97 mmol/L (98-107); Potassium 4.4 mmoL/L (3.5-5.1); Sodium 133 mmol/L (136-145)
[2023-12-15 06:54] LABS: Blood Urea Nitrogen 16 mg/dl (7-17); Creatinine Clearance Estimated 37 mL/min (50-200); Estimated Glomerular Filt Rate 61 ml/min (>60); GFR (African American) 73 ML/MIN (>60)
[2023-12-15 06:55] LABS: Alanine Aminotransferase 20 U/L (12-78); Albumin/Globulin Ratio 1.1 (1.1-1.8); Alkaline Phosphatase 70 U/L (38-126); Anion Gap 4.4 mEq/L (5-15); Aspartate Amino Transferase 28 U/L (14-36); Bilirubin,Total 0.5 mg/dl (0.2-1.3); Calcium 8.7 mg/dl (8.4-10.2); Carbon Dioxide 36 mmol/L (22.0-30.0); Globulin 3.1 g/dL (1.3-3.2); Glucose 96 mg/dl (74-100); Magnesium 2.1 mg/dl (1.6-2.3); Total Protein,Serum 6.6 g/dl (6.3-8.2)
[2023-12-15] MEDS: BUDESONIDE 0.5MG/2ML NEB 0.5 MG IH (07:07)
[2023-12-15] MEDS: acetaZOLAMIDE 250 MG TABLET PO ×2 (08:08→20:00)
[2023-12-15] MEDS: predniSONE 20MG TAB 40 MG PO (08:08)
[2023-12-15] MEDS: guaiFENesin 600 MG TAB.ER.12H PO ×2 (08:08→20:00)
[2023-12-15] MEDS: ENOXAPARIN 60MG/0.6ML SYRINGE 50 MG SQ ×2 (08:08→19:59)
[2023-12-15] MEDS: SENNOSIDES 8.6MG/DOCUSATE 50MG TABLET 1 TAB PO ×2 (08:08→20:00)
[2023-12-15] MEDS: FUROSEMIDE 40MG/4ML VIAL 40 MG IV (08:09)
[2023-12-15] MEDS: POLYETHYLENE GLYCOL 3350 17 GM PACKET PO (08:09)
--- NOTE | 2023-12-15 09:55 | P.CONS_ITS ---
History of Present Illness History of present illness: Ms. Pérez is a 78-year-old female current smoker greater than [id number] smoking history, COPD last seen in the hospital in August 2021 hypercarbic respiratory failure needing noninvasive ventilatory support discharge, no showed to clinic appointments presented to the ER with worsening cough respiratory system bilateral lower extremity swelling and pulmonary was called for further evaluation and management. [facility] Disclaimer: The information contained in this section may have been updated after the patient was seen, as this information can be updated by other users. Medical History (Updated 12/15/23 @ 11:31 by Sebastian Jenkins MD) Pneumonia Chronic respiratory failure with hypercapnia Pulmonary emphysema Bronchiectasis Pulmonary nodule Chronic respiratory failure with hypoxia On home O2 Smoker COPD (chronic obstructive pulmonary disease) Family History Other Family history of stroke Social History Smoking Status: Current every day smoker alcohol intake: never current occupational status: retired Travel in the last 8 weeks: None Review of Systems Constitutional Constitutional: Reports anorexia, Reports body ache(s) and Reports fatigue Eyes Eyes: Denies eye discharge, Denies dry eyes, Denies irritation and Denies itchy eyes ENT Ears, Nose, Mouth, and Throat: Denies epistaxis, Denies facial pain, Denies lip swelling and Denies throat swelling *Cardiovascular Cardiovascular: Reports dyspnea, Reports dyspnea on exertion, Reports leg edema, Reports orthopnea and Reports pedal edema *Respiratory Respiratory: Denies change in phlegm color, Reports chest congestion, Reports cough, Reports dyspnea, Reports dyspnea on exertion, Reports excessive phlegm production, Denies hemoptysis, Denies pain on inspiration, Denies pain with cough and Reports wheezing *Gastrointestinal Gastrointestinal: Denies abdominal pain, Denies belching and Denies cramping *Musculoskeletal Musculoskeletal: Reports back pain, Reports myalgias and Reports other (No small joint swelling or Pain) Psychiatric Psychiatric: Denies homicidal ideation and Denies suicidal ideation Endocrine Endocrine: Reports fatigue and Denies heat intolerance Hematologic/Lymphatic Hematologic/Lymphatic: Denies easy bleeding and Denies lymphadenopathy Allergic/Immunologic Allergic/Immunologic: Denies itchy eyes, Denies lip swelling, Denies throat swelling and Reports wheezing Pulmonology Exam Inpatient Vital signs and Labs for Last 24 Hours: Temp Pulse Resp BP Pulse Ox O2 Del Method O2 Flow Rate 99.7 F H 82 28 H 126/73 97 Nasal Cannula 3 12/14/23 16:00 12/15/23 08:00 12/15/23 08:00 12/15/23 08:00 12/15/23 08:00 12/15/23 09:00 12/15/23 09:00 FiO2 40 12/14/23 06:10 Laboratory Results - last 24 hr 12/15/23 05:43: WBC 10.7, RBC 4.36, Hgb 12.4, Hct 39.5, MCV 90.5, MCH 28.5, MCHC 31.5 L, RDW 15.1, Plt Count 208, MPV 7.5, Neut % (Auto) 77.9, Lymph % (Auto) 15.3, Casey % (Auto) 5.8, Eos % (Auto) 0.5, Baso % (Auto) 0.4, Neut # (Auto) 8.3 H, Lymph # (Auto) 1.6, Casey # (Auto) 0.6, Eos # (Auto) 0.1, Baso # (Auto) 0.0, S odium 133 L, Potassium 4.4, Chloride 97 L, Carbon Dioxide 36 H, Anion Gap 4.4 L, BUN 16, Creatinine 0.90 D, Estimated Creat Clear 37, Estimated GFR 61, Est GFR ( Amer) 73 D, Glucose 96, Calcium 8.7, Magnesium 2.1, Total Bilirubin 0.5, AST 28, ALT 20, Alkaline Phosphatase 70, Total Protein 6.6, Albumin 3.5, Globulin 3.1, Albumin/Globulin Ratio 1.1 I & O for Labs for Last 24 Hours: Intake & Output 12/12/23 12/13/23 12/14/23 12/15/23 23:59 23:59 23:59 23:59 Intake Total 810 / 860 1380 / 1780 1120 / 1120 Output Total 3000 / 3000 2600 / 2600 2220 / 2220 Balance -2190 / -2140 -1220 / -820 -1100 / -1100 Weight 112 lb 11.2 oz 112 lb 6.4 oz 109 lb 12.8 oz Constitutional: Present moderate distress Head: Present normocephalic and atraumatic ENT: Present normal exam, normal oropharynx and mucous membranes moist Neck: Present normal inspection and full ROM Respiratory: Present prolonged expiratory phase, respiratory distress, crackles, diminished air movement and able to speak in complete sentences; Absent wheezes Cardiac: Present S1/S2, Tachycardia and radial pulses present GI: Present soft and distention; Absent tenderness or guarding Rectal (female): Present deferred (female): Present deferred Skin: Present intact; Absent cyanosis or jaundice Neuro: Present alert, awake and oriented x 3 Extremities: Present normal inspection and edema; Absent clubbing or cyanosis Psychiatric: Present normal affect and cooperative Meds Home Medications and Allergies Home Medications ?Medication ?Instructions ?Recorded ?Confirmed ?Type conjugated estrogens 0.625 mg/gram 0.625 mg vaginal DAILY 09/27/22 12/13/23 History vaginal cream (Premarin) New Prescriptions to Start Prescriptions: Allergies Allergy/AdvReac Type Severity Reaction Status Date / Time No Known Allergies Allergy Verified 09/27/22 00:58 Results Laboratory Findings 12/15/23 05:43 12/15/23 05:43 ABG ABG pH 7.35 mmol/L (7.35-7.45) 12/14/23 06:51 ABG pCO2 73.6 mmhg (35.0-45.0) H 12/14/23 06:51 ABG pO2 91.5 mmhg (80-100) 12/14/23 06:51 ABG O2 Saturation 97 % (90-100) 12/14/23 06:51 PT/INR, D-dimer D-Dimer 1.50 ug/mL (0.0-0.5) H 12/13/23 05:40 Abnormal lab findings: Abnormal Labs 12/13/23 12/13/23 12/13/23 05:35 05:40 10:50 Hgb MCHC 30.9 L MPV Neut # (Auto) Eos # (Auto) 0.6 H D-Dimer 1.50 H ABG pCO2 76.6 H ABG pO2 74.2 L ABG HCO3 41.3 H ABG Total CO2 43.7 H ABG Base Excess 15.7 H VBG pH 7.30 L VBG pCO2 66.3 H VBG HCO3 31.7 H VBG Total CO2 33.7 H VBG O2 Saturation 70.5 H VBG Base Excess 5.2 H VBG Lactic Acid 2.1 H Sodium Chloride Carbon Dioxide 37 H Anion Gap Glucose 101 H Calcium NT-Pro-B Natriuret Pep 4310 H Total Protein Albumin Globulin 3.3 H 12/13/23 12/14/23 12/14/23 17:00 06:47 06:51 Hgb 12.0 L MCHC 31.6 L MPV 7.3 L Neut # (Auto) Eos # (Auto) D-Dimer ABG pCO2 73.6 H ABG pO2 ABG HCO3 40.0 H ABG Total CO2 42.3 H ABG Base Excess 14.4 H VBG pH VBG pCO2 VBG HCO3 VBG Total CO2 VBG O2 Saturation VBG Base Excess VBG Lactic Acid Sodium 131 L Chloride 90 L 92 L Carbon Dioxide > 40 H* 43 H* Anion Gap -0.1 L Glucose 137 H D Calcium 8.3 L 8.1 L NT-Pro-B Natriuret Pep Total Protein 6.1 L Albumin 3.3 L D Globulin 12/15/23 05:43 Hgb MCHC 31.5 L MPV Neut # (Auto) 8.3 H Eos # (Auto) D-Dimer ABG pCO2 ABG pO2 ABG HCO3 ABG Total CO2 ABG Base Excess VBG pH VBG pCO2 VBG HCO3 VBG Total CO2 VBG O2 Saturation VBG Base Excess VBG Lactic Acid Sodium 133 L Chloride 97 L Carbon Dioxide 36 H Anion Gap 4.4 L Glucose Calcium NT-Pro-B Natriuret Pep Total Protein Albumin Globulin Assessment and Plan *Assessment and plan (1) Pulmonary embolism: Status: Acute Category: Medical Code(s): I26.99 - Other pulmonary embolism without acute cor pulmonale (2) Hypercarbia: Status: Acute Category: Medical Code(s): R06.89 - Other abnormalities of breathing (3) Pulmonary emphysema: Status: Acute Category: Medical Code(s): J43.9 - Emphysema, unspecified (4) Chronic respiratory failure with hypercapnia: Status: Acute Category: Medical Code(s): J96.12 - Chronic respiratory failure with hypercapnia (5) Pleural effusion: Status: Acute Category: Medical Code(s): J90 - Pleural effusion, not elsewhere classified (6) Pneumonia: Status: Acute Category: Medical Code(s): J18.9 - Pneumonia, unspecified organism Plan Ms. Pérez is a 78-year-old female current smoker greater than [id number] smoking history, COPD last seen in the hospital in August 2021 hypercarbic respiratory failure needing noninvasive ventilatory support discharge, no showed to clinic appointments presented to the ER with worsening cough respiratory system bilateral lower extremity swelling and pulmonary was called for further evaluation and management. CT upon admission bilateral diffuse emphysematous changes along with septal thickening. Left lower lobe mucoid secretions. Left lower lobe nonoccluding pulmonary embolism Blood gas upon admission chronic hypercarbic respiratory failure with a pH of 7.35 and a pCO2 of 76.6. COVID-19 and flu PCR panel negative Afebrile. Hemodynamically stable. No evidence of leukocytosis. Patient is receiving diuretics, antibiotics steroids and nebulization therapies for presumed COPD exacerbation and pneumonia. Patient appeared to be in moderate respiratory distress. Able to talk in full sentences no significant wheezing appreciated. Bilateral lower extremity edema. Plan: Continue volume optimization as per cardiology and primary team Continue full dose anticoagulation, follow-up with lower extremity venous Doppler. D-dimer elevated at 1.15. Will at least complete 3 months of anticoagulation Initiate Trelegy 100 inhaler along with DuoNebs every 6 as needed Continue prednisone 40 mg daily x 5 days Continue levofloxacin for a total of 5 days Recommend nocturnal oximetry testing to facilitate noninvasive ventilator therapy upon discharge for the noted chronic hypercarbic respiratory failure # Thank you for involving pulmonary in this patient care. Will continue to follow.
--- NOTE | 2023-12-15 10:31 | HMH.OTEV ---
OT Inpatient Evaluation Rehab OT IP Evaluation Start: 12/14/23 07:18 Freq: ONCE Status: Active Protocol: Document 12/15/23 10:01 [facility] (Rec: 12/15/23 10:31 [facility] [id number]) Rehab OT IP Assessment Subjective History Pt oriented x 2 on arrival. Pt agreeable to engage in therapy evaluation. Pt admitted to [facility] on 12/13/23 due to respiratory distress. Pt history and physical report : Ms. Miller is a 78-year-old female with history of COPD and tobacco abuse. She presented to the ER because of increased swelling in her feet over the past few weeks and increased cough for the past 2 to 3 days. Normally wears 3 L of oxygen at baseline. On arrival to the ER she complains of increased dyspnea with exertion. Difficulty laying flat. She also reports having had an episode of bright red blood with a bowel movement. Occasionally painful over the past day or 2. She denies any maria a fever, nausea or vomiting. On the medication for her heart fluid management . Has been using her nebulizer at home. Workup in the ER concerning for hyperexpansion lung maravilla. Blood gas showing hypercapnic respiratory failure with pH of 7.3. Initiated on BiPAP. Medicine consulted for admission and further management. Per chart review, EMS administered 1 DuoNeb as well as 125 mg of Solu-Medrol and route. On evaluation, patient is diuresing well. She was administered Lasix in the ER. She is getting up to bedside commode on evaluation. Awaiting repeat blood gas to monitor for response to BiPAP. Labs concerning for elevated BNP of 4000. Normal white count, kidney function normal with creatinine 0.6 and BUN of 12, troponin negative initially. EKG with no ischemic changes. CTA obtained does show small subsegmental PE. Subjective Information provided by pt may not be accurate due to pt being a poor historian. Prior to admission to hospital, pt reports living at home with her daughter. Pt reports that her daughter does not work. Pt 's home is 2 stories with multiple steps. Pt reports having her bedroom and bathroom on the first floor. Pt reports being independent with all ADLs. Pt reports that her daughter assists her with IADLs such as cooking and cleaning. Pt reports not using any assistive devices for functional transfers. Pt no longer engages in driving. Pt engaged in bed mobility to transition from supine to eob with CGA. Pt performed sit to stand with min assist. Pt engaged in functional mobility for ~10 feet with CGA. Pt demonstrated slight loss of balance during this task. Pt then sat in chair with standby assist. Pt was left resting in chair with call banerjee and all other needs in reach. Objective Patient Orientation Name,Birthday Right Upper Extremity Gross ROM WFL Left Upper Extremity Gross ROM WFL Bed Mobility bed mobility-scooting,bed mobility - supine/sit Assist Level Contact Guard/Hand Hold Transfer Training Sit/Stand Transfer Assist Level Minimal x 1 (25% assist) Decrease in Endurance Yes Rehab OT IP prob,goals,plan Problems Date of Evaluation: 12/15/23 OT IP Problems Bed Mobility,Transfers,Balance ,Self care,Safety Rehab Potential Rehab Potential Good Equipment Needs Assistive Devices Rolling / Wheeled Walker Plan OT intervention Plan Bed Mobility,Transfers,Balance ,Self care,Safety,Therapeutic Exercise OT Plan Frequency Daily Duration LOS Discharge Goals Bed Mobility Ability Standby Assistance Sit to Stand Chair Transfer Ability Contact Guard/Hand Hold Chair Transfer Ability Contact Guard/Hand Hold Chair Transfer Technique Sit to/from Ambulatory Chair Transfer Assistive Devices Rolling Walker Feeding Ability Assist with Tray Set Up Lower Body Dressing Ability Moderate Assistance Upper Body Dressing Ability Minimal Assistance Bathing Ability Moderate Assistance Performing Toilet Hygiene Ability Moderate Assistance Overall Commode/Toilet Transfer Ability Minimal Assistance Commode/Toilet Transfer Technique Sit to/from Ambulatory Commode/Toilet Transfer Assistive Grab Bars Devices Oral Care Assist Contact Guard Discharge Plan OT Discharge Plan Pt will continue to be seen for OT services while at [facility]. Once medically stable, pt could return living at home, provided that the daughter is able to provide 24/7 assistance. Upon patient returning home, pt would benefit from a evaluation to address functional decline. If daughter is unable to provide 24/7 care, therapist recommends short term rehab at SNF. Pt is recommended for a walker to provide support and increase safety during functional transfers. Continued skilled services are important to improve balance, endurance, functional transfers, safety, and ADL independence to reach [facility]. Eval Complexity Eval Charge Codes 42728 - Moderate Complexity PHYSICIAN CERTIFICATION: I certify the specified therapy services for [place] are required, authorized, and reviewed every 30 days.
[2023-12-15] MEDS: FLUTICASONE/UMECLIDIN/VILANTER 100/62.5/25MCG INHALER 1 PUFF IH (11:04)
--- NOTE | 2023-12-15 11:28 | CA_ITS ---
FINAL REPORT TECHNIQUE: Bilateral lower extremity venous duplex was performed with augmentation and compression. CLINICAL HISTORY: PE, COPD, edema, smoker, home O2, SOB FINDINGS: Proper flow is seen throughout the deep venous systems bilaterally. There is no evidence of deep venous thrombosis. IMPRESSION: There is no evidence of deep venous thrombosis in either lower extremity. Reviewed, Interpreted and Dictated by Delfino Leyva MD Transcribed by Maryanne Montano Authenticated and [facility]
--- NOTE | 2023-12-15 11:46 | P.CONCA_ITS ---
History of Present Illness History of Present Illness Consult date: 12/15/23 Requesting physician: Rohith Diaz Consult reason: shortness of breath Chief complaint: SOA History of present illness: This is a 78-year-old female who presented to the emergency department with complaints of shortness of breath and lower extremity edema. She has a past medical history of COPD. The patient states that for approximately 3 days prior to her admission she had worsening shortness of breath and an increased productive cough. She states that she was coughing up white sputum and sometimes it would be discolored but she was unable to tell me what color it was. The patient states that she had significant bilateral lower extremity edema and her legs were hurting. She states that she was unable to lie flat in bed because of her shortness of breath. She denies any chest pain or pressure. She states that she also had some bowel movements that were bright red in color. She denies any fever, chills, nausea or vomiting. The patient denies any past medical history for her heart. [facility] Disclaimer: The information contained in this section may have been updated after the patient was seen, as this information can be updated by other users. Medical History (Updated 12/15/23 @ 12:32 by Cristin Bledsoe APRN) Pulmonary embolism Pneumonia Chronic respiratory failure with hypercapnia Pulmonary emphysema Bronchiectasis Pulmonary nodule Chronic respiratory failure with hypoxia On home O2 Smoker COPD (chronic obstructive pulmonary disease) Family History Other Family history of stroke Social History Smoking Status: Current every day smoker alcohol intake: never current occupational status: retired Travel in the last 8 weeks: None Review of Systems Review of Systems Review of systems:: pertinent systems reviewed and negative unless documented below Constitutional Constitutional: Reports system reviewed and no additional complaints, except as documented, Reports fatigue and Reports lethargy Eyes Eyes: Reports system reviewed and no additional complaints, except as documented ENT Ears, Nose, Mouth, and Throat: Reports system reviewed and no additional complaints, except as documented *Cardiovascular Cardiovascular: Reports system reviewed and no additional complaints, except as documented, Denies chest pain, Reports dyspnea, Reports dyspnea on exertion, Reports leg edema, Reports orthopnea and Reports pedal edema *Respiratory Respiratory: Reports system reviewed and no additional complaints, except as documented, Reports dyspnea and Reports dyspnea on exertion *Gastrointestinal Gastrointestinal: Reports system reviewed and no additional complaints, except as documented and Reports hematochezia *Genitourinary Genitourinary: Reports system reviewed and no additional complaints, except as documented *Musculoskeletal Musculoskeletal: Reports system reviewed and no additional complaints, except as documented Integumentary/Breasts Skin/Breast: Reports system reviewed and no additional complaints, except as documented *Neurologic Neurologic: Reports system reviewed and no additional complaints, except as documented Psychiatric Psychiatric: Reports system reviewed and no additional complaints, except as documented Endocrine Endocrine: Reports system reviewed and no additional complaints, except as documented and Reports fatigue Hematologic/Lymphatic Hematologic/Lymphatic: Reports system reviewed and no additional complaints, except as documented Allergic/Immunologic Allergic/Immunologic: Reports system reviewed and no additional complaints, except as documented Exam Data for Last 24 hours Vital signs and Labs for Last 24 Hours: Temp Pulse Resp BP Pulse Ox O2 Del Method O2 Flow Rate 99.7 F H 77 24 122/84 91 L Nasal Cannula 3 12/14/23 16:00 12/15/23 11:05 12/15/23 10:00 12/15/23 10:00 12/15/23 10:00 12/15/23 10:00 12/15/23 10:00 FiO2 40 12/14/23 06:10 Laboratory Results - last 24 hr 12/15/23 05:43: WBC 10.7, RBC 4.36, Hgb 12.4, Hct 39.5, MCV 90.5, MCH 28.5, MCHC 31.5 L, RDW 15.1, Plt Count 208, MPV 7.5, Neut % (Auto) 77.9, Lymph % (Auto) 15.3, [place] % (Auto) 5.8, Eos % (Auto) 0.5, Baso % (Auto) 0.4, Neut # (Auto) 8.3 H, Lymph # (Auto) 1.6, [place] # (Auto) 0.6, Eos # (Auto) 0.1, Baso # (Auto) 0.0, Sodium 133 L, Potassium 4.4, Chloride 97 L, Carbon Dioxide 36 H, Anion Gap 4.4 L , BUN 16, Creatinine 0.90 D, Estimated Creat Clear 37, Estimated GFR 61, Est GFR ( Amer) 73 D, Glucose 96, Calcium 8.7, Magnesium 2.1, Total Bilirubin 0.5, AST 28, ALT 20, Alkaline Phosphatase 70, Total Protein 6.6, Albumin 3.5, Globulin 3.1, Albumin/Globulin Ratio 1.1 I & O for Last 24 hours: Intake & Output 12/12/23 12/13/23 12/14/23 12/15/23 23:59 23:59 23:59 23:59 Intake Total 810 / 860 1380 / 1780 1120 / 1120 Output Total 3000 / 3000 2600 / 2600 2220 / 2220 Balance -2190 / -2140 -1220 / -820 -1100 / -1100 Weight 112 lb 11.2 oz 112 lb 6.4 oz 109 lb 12.8 oz Constitutional Constitutional: no acute distress and average body habitus *Routine HEENT Exam Head: Present normocephalic and atraumatic ENT: Present mucous membranes moist *Routine Neck Exam Neck: Present supple, full ROM and normal carotid upstroke; Absent JVD, carotid bruit or lymphadenopathy *Routine Respiratory Exam Respiratory: Present rales, wheezes, crackles, diminished air movement and symmetric chest movement *Routine Cardiovascular Exam Cardiovascular: Present RRR, Normal S1 and Normal S2; Absent murmur or gallop *Routine Abdominal Exam Abdominal: Present soft and normoactive bowel sounds; Absent tenderness, distended or organomegaly *Routine Extremities Exam Extremities: Present edema, full ROM, pulses intact and normal capillary refill; Absent cyanosis or clubbing *Routine Skin Exam Skin: Present intact and warm; Absent erythema *Routine Neurological Exam Neurological: Present alert, oriented X3 and CN II-XII intact; Absent sensory deficit or motor deficit Routine Psychiatric Exam Psychiatric: Present normal affect Meds Home Medications and Allergies Home Medications ?Medication ?Instructions ?Recorded ?Confirmed ?Type conjugated estrogens 0.625 mg/gram 0.625 mg vaginal DAILY 09/27/22 12/13/23 History vaginal cream (Premarin) New Prescriptions to Start Prescriptions: Allergies Allergy/AdvReac Type Severity Reaction Status Date / Time No Known Allergies Allergy Verified 09/27/22 00:58 Assessment and Plan *Assessment and plan (1) Acute exacerbation of CHF (congestive heart failure): Status: Acute Qualifiers: Heart failure type: unspecified Qualified Code(s): I50.9 - Heart failure, unspecified Category: Medical Code(s): I50.9 - Heart failure, unspecified (2) Pleural effusion: Status: Acute Category: Medical Code(s): J90 - Pleural effusion, not elsewhere classified (3) BRBPR (bright red blood per rectum): Status: Acute Category: Medical Code(s): K62.5 - Hemorrhage of anus and rectum (4) Pulmonary emphysema: Status: Acute Qualifiers: Emphysema type: unspecified Qualified Code(s): J43.9 - Emphysema, unspecified Category: Medical Code(s): J43.9 - Emphysema, unspecified (5) Pneumonia: Status: Acute Qualifiers: Laterality: unspecified laterality Lung location: unspecified part of lung Pneumonia type: due to unspecified organism Qualified Code(s): J18.9 - Pneumonia, unspecified organism Category: Medical Code(s): J18.9 - Pneumonia, unspecified organism (6) Chronic respiratory failure with hypercapnia: Status: Acute Category: Medical Code(s): J96.12 - Chronic respiratory failure with hypercapnia (7) Tobacco abuse: Status: Acute Category: Medical Code(s): Z72.0 - Tobacco use (8) Pulmonary embolism: Status: Acute Qualifiers: Pulmonary embolism type: single subsegmental (without acute cor pulmonale) Qualified Code(s): I26.93 - Single subsegmental thrombotic pulmonary embolism without acute cor pulmonale Category: Medical Code(s): I26.99 - Other pulmonary embolism without acute cor pulmonale Plan Plan: 1. The patient was admitted to the hospital with shortness of breath. She is having an acute exacerbation of HFpEF. Her BNP was over 4000. She does have bilateral pleural effusions. She is being diuresed with IV Lasix. Will continue IV Lasix for now. 2. Add lisinopril 5 mg p.o. daily for HFpEF. 3. Will hold off on a beta-re due to HFpEF and COPD exacerbation. 4. Once she is euvolemic we will add Jardiance for the HFpEF. 5. The patient's preliminary echocardiogram shows a normal ejection fraction with a severely dilated right ventricle and moderately reduced RV function. The patient does have right-sided heart failure which is most likely from her underlying lung disease. But she does require aggressive diuresis at this time. 6. The patient does have COPD and pneumonia. She does have a pulmonology consult. Will defer. 7. The patient does have a small pulmonary embolus that is nonoccluding in the small branch of the left lower lobe. She is currently on Lovenox for anticoagulation. She will need to be switched over to Eliquis prior to discharge home. 8. Her blood pressure is well-controlled. 9. Her LDL goal is less than 100. 10. Further recommendations were made pending the patient's response to treatment. Thank you for the opportunity to help participate in the care of this patient. All recommendations and orders are per Dr. Lorenz.
[2023-12-15] MEDS: LISINOPRIL 5MG TABLET 5 MG PO (13:36)
--- NOTE | 2023-12-15 13:44 | HMH.PTEV ---
Physical Therapy Evaluation Rehab PT IP Evaluation Start: 12/14/23 07:18 Freq: ONCE Status: Active Protocol: Document 12/15/23 13:35 APRIL (Rec: 12/15/23 13:43 APRIL [id number]) Subjective/History History History Per H&P: Ms. Miller is a 78- year-old female with history of COPD and tobacco abuse. She presented to the ER because of increased swelling in her feet over the past few weeks and increased cough for the past 2 to 3 days. Normally wears 3 L of oxygen at baseline. On arrival to the ER she complains of increased dyspnea with exertion. Difficulty laying flat. She also reports having had an episode of bright red blood with a bowel movement. Occasionally painful over the past day or 2. She denies any maria a fever, nausea or vomiting. On the medication for her heart fluid management . Has been using her nebulizer at home. Workup in the ER concerning for hyperexpansion lung maravilla. Blood gas showing hypercapnic respiratory failure with pH of 7.3. Initiated on BiPAP. Medicine consulted for admission and further management. Subjective Subjective Pt is a questionable historian . Pt reports she lives home alone but also states her daughter lives with her. Pt reports her daughter works sometimes but reports she does not have a job and is able to stay with her all day/as needed. Pt reports being IND with all mobility without AD use. Not driving prior to admission. New diagnosis of cancer in past 12 No months? Rehab PT IP Eval Objective Appearance Patient Behavior Appropriate Patient Orientation Person Difficulty following instructions mild Speech Pattern Appropriate,Garbled Ambulation Patient Able to Ambulate Yes Ambulation Observation IP General Gait Pattern Observation Wide Based Gait Ambulation Distance (feet) 18 Ambulation Assistive Device None Ambulation Ability Minimal x 1 (25% assist) Balance Ability to Arise Able, uses arms to help Sitting Balance Steady, safe Standing Balance Unsteady Transfers Bed Transfer Ability Contact Guard/Hand Hold Sit to Stand Bed Transfer Ability Contact Guard/Hand Hold Rehab PT IP prob,goals,plan Problems Date of Evaluation: 12/15/23 PT IP Problems Bed Mobility,Transfers,Gait, Safety Rehab Potential Rehab Potential Good Equipment Needs Assistive Devices Rolling / Wheeled Walker Plan PT Intervention Plan Bed Mobility,Transfers,Gait, Balance,Self care,Safety, Therapeutic Exercise Other Intervention Plan 1-2 times PT Plan Frequency Daily Duration LOS Discharge Goals Bed Transfer Ability Supervision/Stand by Sit to Stand Chair Transfer Ability Supervision/Stand by Ambulation Assistive Device Rolling Walker Ambulation Distance (feet) 30 Discharge Plan PT Discharge Plan Initial physical therapy evaluation performed. Patient presents below baseline at this time in functional mobility, transfers, gait, and strength. Pt would benefit from skilled PT while at [facility] to prevent further functional decline and maximize safety with mobility. Pt safe to d/c home when deemed medically necessary d/t current level of mobility, home set-up, and family support. However, pt does require 24/7 assistance/ SUP d/t fall risk from balance impairments. If pt not able to secure 24/7 assistance/ supervision, PT would recommend rehab placement. PT recommending home health PT services to address deficits. Eval Complexity Eval Charge Codes 68773 - High Complexity PHYSICIAN CERTIFICATION: I certify the specified therapy services for Sari Miller are required, authorized, and reviewed every 30 days.
--- NOTE | 2023-12-15 14:53 | CA_ITS ---
APPROVED REPORT EXAM: Comprehensive 2D, Doppler, and color-flow Echocardiogram [employer] Inspector: Janet Walker CRT Ht: 5 ft 6 in Wt: 112lbs BSA: 1.56 BP: 106/58 mmHg Indications: Congestive Heart Failure, COPD, Shortness of Breath, Peripheral Edema, Pleural Effusion, home O2, bipap, PE, 2D Dimensions LA Volume 30.60 mL LA Volume Index 19.10 mL/m2 (M/F) 16-34 M-Mode Dimensions RVDd 3.56 cm (0.9-2.6) LA Diam 3.55 cm (1.9-4.0) LVDd 4.06 cm (3.5-5.7) LVDs 2.45 cm (3.5-5.7) IVSd 1.55 cm (0.6-1.1) PWd 0.69 cm (0.6-1.1) EF (Teich) 70.80% FS 39.70% EDV (Teich) 72.50 mL TAPSE 2.35 (<1.7) ESV (Teich) 21.20 mL LV Diastology E Decel Time 150 (160-240 msec) E/A Ratio 0.89 MED A' 13.70 cm/s LAT A' 15.30 cm/s Aortic Valve AO Peak GR. 5.10 mmHg Mitral Valve MV E Max Arpan. 92.0 (40-130 cm/s) MV A Velocity 103.0 (40-130 cm/s) E/A Ratio 0.89 MV PHT 44.0 ms Tricuspid Valve TR P. Velocity 332.00 cm/s RAP Estimate 10.00 mmHg RVSP 54.00 mmHg Left Ventricle The left ventricle is normal size. The left ventricular systolic function is normal. The left ventricular ejection fraction is within the normal range. There is increased overall thickness. There is septal flattening present, consistent with elevated right-sided pressures. Diastolic function is indeterminate. LVEF is 50 to 55%. Right Ventricle Right ventricle is severely dilated. Right ventricle is moderately hypokinetic. Atria Left atrium is mildly dilated. Right atrium is severely dilated. There is no Doppler evidence of interatrial shunt. Aortic Valve The aortic valve is mildly thickened. There is no aortic valvular stenosis. Trace aortic regurgitation. Mitral Valve The mitral valve is normal in structure. No evidence of mitral valve stenosis. Trace mitral regurgitation. Tricuspid Valve The tricuspid valve leaflets are thin and pliable. Moderate to severe tricuspid regurgitation. RVSP is 40-45 mmHg. Pulmonic Valve The pulmonary valve is normal in structure. Trace pulmonic regurgitation. Great Vessels The aortic root is normal in size. The ascending aorta is not well-visualized. The IVC is dilated. Pericardium There is no pericardial effusion. Other Information Study Quality: Fair Conclusion Normal LV systolic function. Severe RV dilation with moderate reduction in RV function. Septal flattening present, consistent with elevated right-sided pressures. Biatrial dilation. Moderate to severe TR. Elevated RVSP is 40-45 mmHg. Electronically signed by : Vivi Lorenz MD 12/16/2023 11:16:39
--- NOTE | 2023-12-15 15:37 | PC.NURSE ---
pt has remained alert and oriented this shift. pt remains on 3L nc. pt has had multiple episodes of diarrhea. hospitalist aware. pt also is showing s/s of hemorrhoids. pt has been to and from chair to bed numerous times this shift. pt has had adequate urine output( see intake and output). pt has had no complaints this shift. no new orders at this time. call light within reach.
--- NOTE | 2023-12-15 18:16 | P.PN_ITS ---
Subjective *Date: 12/15/23 *Time: 22:04 Interval history: Patient doing better this morning. Did not wear her BiPAP except for an hour last night. Stable on 3 L oxygen. White count remains normal. Tolerating p.o. intake. Diuresing well. -4 L since admission. Medical Exam Vital signs and Labs for Last 24 Hours: Vital Signs Temp Pulse Pulse Resp BP Pulse Ox O2 Del Method 12/15/23 16:00 90 12/15/23 16:00 97.9 F 86 17 99/49 L 90 L 12/15/23 14:59 Nasal Cannula 12/15/23 14:00 83 24 106/52 L 90 L Nasal Cannula 12/15/23 13:00 Nasal Cannula 12/15/23 12:00 85 16 113/58 L 94 L Nasal Cannula 12/15/23 12:00 80 12/15/23 11:05 77 12/15/23 11:05 76 12/15/23 11:00 Nasal Cannula 12/15/23 10:00 86 24 122/84 91 L Nasal Cannula 12/15/23 09:00 Nasal Cannula 12/15/23 08:00 100 H 12/15/23 08:00 82 28 H 126/73 97 Nasal Cannula 12/15/23 08:00 95 Nasal Cannula 12/15/23 06:49 Nasal Cannula 12/15/23 06:00 80 20 115/56 L 91 L Nasal Cannula 12/15/23 05:00 Nasal Cannula 12/15/23 04:00 86 12/15/23 04:00 84 22 103/57 L 92 L Nasal Cannula 12/15/23 04:00 Nasal Cannula 12/15/23 03:00 Nasal Cannula 12/15/23 02:36 75 12/15/23 02:36 71 12/15/23 02:00 92 H 29 H 112/58 L 94 L Nasal Cannula 12/15/23 01:00 Nasal Cannula 12/15/23 00:00 91 H 12/15/23 00:00 92 H 26 H 110/55 L 93 L Nasal Cannula 12/14/23 23:00 Nasal Cannula 12/14/23 22:56 74 12/14/23 22:56 73 12/14/23 22:00 95 H 20 109/60 L 95 Nasal Cannula 12/14/23 21:00 Nasal Cannula 12/14/23 20:00 87 12/14/23 20:00 3 L Nasal Cannula 12/14/23 20:00 89 18 107/52 L 93 L Nasal Cannula 12/14/23 19:03 Nasal Cannula, BiPAP 12/14/23 19:02 74 12/14/23 19:02 77 12/14/23 18:29 Nasal Cannula O2 Flow Rate 12/15/23 16:00 12/15/23 16:00 12/15/23 14:59 3 12/15/23 14:00 3 12/15/23 13:00 3 12/15/23 12:00 3 12/15/23 12:00 12/15/23 11:05 12/15/23 11:05 12/15/23 11:00 3 12/15/23 10:00 3 12/15/23 09:00 3 12/15/23 08:00 12/15/23 08:00 3 12/15/23 08:00 3 12/15/23 06:49 3 12/15/23 06:00 3 12/15/23 05:00 3 12/15/23 04:00 12/15/23 04:00 3 12/15/23 04:00 3 12/15/23 03:00 3 12/15/23 02:36 12/15/23 02:36 12/15/23 02:00 3 12/15/23 01:00 3 12/15/23 00:00 12/15/23 00:00 3 12/14/23 23:00 3 12/14/23 22:56 12/14/23 22:56 12/14/23 22:00 3 12/14/23 21:00 3 12/14/23 20:00 12/14/23 20:00 12/14/23 20:00 3 12/14/23 19:03 3 12/14/23 19:02 12/14/23 19:02 12/14/23 18:29 3 Intake and Output 12/15/23 12/15/23 12/15/23 07:59 15:59 23:59 Intake Total 400 / 1840 1440 / 1840 Output Total 1100 / 3570 1570 / 3570 900 / 3570 Balance -700 / -1730 -130 / -1730 -900 / -1730 Intake: Intake, Oral Amount 250 / 1690 1440 / 1690 Intake, Total IV Amount 150 / 150 Levofloxacin/D5w 750 mg/150 ml 150 / 150 750 mg In 150 ml @ 100 mls/hr IV Q24H [facility] Rx#:[id number] Output: Output, Urine Amount 1100 / 3570 1570 / 3570 900 / 3570 Other: Number of Unmeasured Voids 1 1 Number of Bowel Movements 4 Weight 49.804 kg 49.8 kg Patient Weight 12/15/23 23:59 Weight 49.8 kg Laboratory Results - last 24 hr 12/15/23 05:43: WBC 10.7, RBC 4.36, Hgb 12.4, Hct 39.5, MCV 90.5, MCH 28.5, MCHC 31.5 L, RDW 15.1, Plt Count 208, MPV 7.5, Neut % (Auto) 77.9, Lymph % (Auto) 15.3, [place] % (Auto) 5.8, Eos % (Auto) 0.5, Baso % (Auto) 0.4, Neut # (Auto) 8.3 H, Lymph # (Auto) 1.6, [place] # (Auto) 0.6, Eos # (Auto) 0.1, Baso # (Auto) 0.0, Sodium 133 L, Potassium 4.4, Chloride 97 L, Carbon Dioxide 36 H, Anion Gap 4.4 L , BUN 16, Creatinine 0.90 D, Estimated Creat Clear 37, Estimated GFR 61, Est GFR ( Amer) 73 D, Glucose 96, Calcium 8.7, Magnesium 2.1, Total Bilirubin 0.5, AST 28, ALT 20, Alkaline Phosphatase 70, Total Protein 6.6, Albumin 3.5, Globulin 3.1, Albumin/Globulin Ratio 1.1 I & O for Labs for Last 24 Hours: Intake & Output 12/12/23 12/13/23 12/14/23 12/15/23 23:59 23:59 23:59 23:59 Intake Total 810 / 860 1380 / 1780 1840 / 1840 Output Total 3000 / 3000 2600 / 2600 3570 / 3570 Balance -2190 / -2140 -1220 / -820 -1730 / -1730 Weight 51.12 kg 50.984 kg 49.8 kg Constitutional: Present no acute distress, cachectic, chronically ill appearing and cooperative Head: Present atraumatic and normocephalic ENT: Present normal exam Respiratory: Present accessory muscle use, prolonged expiratory phase, rhonchi and diminished air movement; Absent wheezes or crackles Cardiac: Present Reg Rate and Rhythm GI: Present soft and normal bowel sounds; Absent distention or tenderness Extremities: Present normal inspection and full ROM; Absent edema Skin: Present intact; Absent erythema Neuro: Present Grossly Intact, alert, awake, oriented x 3 and moves all extremities Additional Findings:: Prominent thoracic kyphosis Assessment and Plan *Assessment and plan (1) Acute CHF: Status: Acute Category: Medical Code(s): I50.9 - Heart failure, unspecified (2) Acute respiratory failure with hypoxia and hypercarbia: Status: Resolved Category: Medical Code(s): J96.01 - Acute respiratory failure with hypoxia; J96.02 - Acute respiratory failure with hypercapnia (3) Pulmonary embolism: Status: Acute Qualifiers: Pulmonary embolism type: single subsegmental (without acute cor pulmonale) Qualified Code(s): I26.93 - Single subsegmental thrombotic pulmonary embolism without acute cor pulmonale Category: Medical Code(s): I26.99 - Other pulmonary embolism without acute cor pulmonale (4) Acute exacerbation of chronic obstructive pulmonary disease (COPD): Status: Acute Category: Medical Code(s): J44.1 - Chronic obstructive pulmonary disease with (acute) exacerbation (5) Tobacco abuse: Status: Acute Category: Medical Code(s): Z72.0 - Tobacco use (6) BRBPR (bright red blood per rectum): Status: Acute Category: Medical Code(s): K62.5 - Hemorrhage of anus and rectum (7) Cachexia: Status: Acute Category: Medical Code(s): R64 - Cachexia Plan 78 year old female presented to the ED via ems for hypoxia and respiratory distress. Found to have some mild hypercapnic respiratory failure with COPD exacerbation and PE. Concern for CHF exacerbation versus new diagnosis of CHF. Medicine consulted by ER physician, discussed case, requesting admission for diuresis. I agreed to admit for further management. Condition stabilizing. Problems addressed as follows: Acute CHF -No reported history however with her extensive COPD history, in light of her elevated BNP of 4000, strong concern for component of diastolic heart failure plus or minus systolic heart failure. -Continue aggressive diuresis, down to 4 L. Continue Lasix 40 mg IV daily. -Wean oxygen as tolerated. Goal sats greater 90%. Currently on 3 L -Discussed case with cardiology, recommend adding lisinopril 5 mg daily for heart failure with preserved ejection fraction. Recommend continuing to diurese given her reduced RV function and dilated RV on echo today. Patient will need to be switched to oral anticoagulant before discharging home. -Strict monitoring of electrolytes given aggressive diuresis necessitating close monitoring of kidney function as well. - CBC, CMP, magnesium ordered for the morning - Potassium 4.4, kidney function normal with BUN 16, creatinine 0.9. ACUTE RESPIRATORY FAILURE WITH HYPOXIA AND HYPERCARBIA COPD exacerbation Mixed respiratory acidosis with metabolic alkalosis compensation. -Presented to ED with decreased saturations. Placed on BiPAP due to pH of 7.3 with pCO2 in the 60s. ABG this morning with pH of 7.35, pCO2 73, compensated with serum bicarb 43. Continue BiPAP with EPAP of 6, IPAP 16, rate of 18, FiO2 40%. - Patient seen by pulmonology today, per review of their charting, recommend continuing antibiotics with Levaquin for 5 days. Continue full dose anticoagulation. Complete 5 days of steroids with prednisone. -Continue DuoNebs every 6 hours scheduled -Budesonide twice daily -Continue Trelegy 100 inhaler -White count normal at 10. Pulmonary emboli -Noted on CT of chest. Per my review appears subsegmental. Will need anticoagulation. Initiated Lovenox 1 mg/kg twice daily. -Slight drop in hemoglobin to 12 today. Monitor for bleeding given report of bright red blood. Suspect hemorrhoidal bleed. If hemoglobin remained stable with no significant blood loss, transition to Eliquis for treatment prior to shawn fisher. TOBACCO ABUSE: nicotine patch PRN FULL CODE -awaiting to hear from POA regular diet Lovenox 1 mg/kg twice daily
[2023-12-16] VITALS: BP 118/71; PULSE 70; PULSE 73; RESP 20; TEMP 36.7; O2SAT 94
[2023-12-16 04:00] VITALS: BP 116/63; PULSE 69; RESP 20; TEMP 36.6; O2SAT 94; BMI 15.8
[2023-12-16] MEDS: FLUTICASONE/UMECLIDIN/VILANTER 100/62.5/25MCG INHALER 1 PUFF IH (06:43)
[2023-12-16 06:44] VITALS: O2SAT 92
[2023-12-16 06:51] LABS: Albumin Level 3.7 g/dl (3.5-5.0); Chloride 96 mmol/L (98-107); Potassium 4.7 mmoL/L (3.5-5.1); Sodium 128 mmol/L (136-145)
[2023-12-16 06:53] LABS: Blood Urea Nitrogen 20 mg/dl (7-17); Creatinine Clearance Estimated 34 mL/min (50-200); Estimated Glomerular Filt Rate 81 ml/min (>60); GFR (African American) 98 ML/MIN (>60)
[2023-12-16 06:54] LABS: Alanine Aminotransferase 18 U/L (12-78); Albumin/Globulin Ratio 1.2 (1.1-1.8); Alkaline Phosphatase 72 U/L (38-126); Anion Gap 5.7 mEq/L (5-15); Aspartate Amino Transferase 26 U/L (14-36); Bilirubin,Total 0.5 mg/dl (0.2-1.3); Calcium 9.1 mg/dl (8.4-10.2); Carbon Dioxide 31 mmol/L (22.0-30.0); Globulin 3.2 g/dL (1.3-3.2); Glucose 95 mg/dl (74-100); Total Protein,Serum 6.9 g/dl (6.3-8.2)
[2023-12-16 06:56] LABS: Basophils % 0.4 % (0.1-2.0); Eosinophils # 0.2 K/mm3 (0.0-0.4); Eosinophils % 1.8 % (0.1-12.0); Hemoglobin 13.3 g/dL (12.2-16.2); Lymphocytes # 1.5 K/mm3 (0.7-4.5); Lymphocytes % 15.3 % (10-50); Mean Corpuscular HGB Conc 30.3 g/dL (31.8-35.4); Mean Corpuscular Volume 92.2 fl (81-99); Mean Platelet Volume 7.6 fl (7.4-10.4); Monocytes # 0.6 K/mm3 (0.1-1.0); Monocytes % 6.2 % (1.7-9.3); Neutrophils # 7.4 K/mm3 (1.8-7.8); Neutrophils % 76.3 % (37.0-80.0); Platelet Count 221 K/mm3 (142-424); Red Blood Count 4.77 M/mm3 (4.20-5.40); Red Cell Distribution Width 15.2 % (11.5-17.5); White Blood Count 9.7 K/mm3 (4.8-10.8)
--- NOTE | 2023-12-16 07:38 | SW/DCPLANNER ---
Addendum entered by Oxana Boyd 12/17/23 07:34: Daughters phone number is [phone] Addendum entered by Shameka Mejia RN 12/16/23 14:14: Information sent to [facility]. They accepted referral and will start services on or Friday. Original Note: I spoke w/ this patient regarding discharge planning. PT/OT recommended home w/ family 23/09 and home health OR placement. Patient stated that she resides at home w/ her daughter and prefers to return home w/ home health services. Patient is not interested in placement at this time. I will continue to follow up w/ patient and set up home health at time of discharge. Patient stated that she does not have an agency preference.
[2023-12-16 08:00] VITALS: BP 113/55; PULSE 76; PULSE 90; RESP 16; TEMP 36.8; O2SAT 92
[2023-12-16 09:09] LABS: Cholesterol 173 mg/dl (140-200); Triglycerides 106 mg/dl (30-150); VLDL Cholesterol 21 mg/dL (0-40)
[2023-12-16 09:10] LABS: Chol/HDL Ratio 1.9 (1-3.5); HDL Cholesterol 91 mg/dl (40-60)
[2023-12-16] MEDS: ENOXAPARIN 60MG/0.6ML SYRINGE 50 MG SQ (09:19)
[2023-12-16] MEDS: FUROSEMIDE 40MG/4ML VIAL 40 MG IV (09:19)
[2023-12-16] MEDS: guaiFENesin 600 MG TAB.ER.12H PO (09:20)
[2023-12-16] MEDS: acetaZOLAMIDE 250 MG TABLET PO (09:20)
[2023-12-16] MEDS: LISINOPRIL 5MG TABLET 5 MG PO (09:20)
[2023-12-16] MEDS: POLYETHYLENE GLYCOL 3350 17 GM PACKET PO (09:20)
[2023-12-16] MEDS: SENNOSIDES 8.6MG/DOCUSATE 50MG TABLET 1 TAB PO (09:20)
[2023-12-16] MEDS: predniSONE 20MG TAB 40 MG PO (09:21)
--- NOTE | 2023-12-16 10:39 | EXP.CARD.PN ---
Subjective Subjective Date: 12/16/23 Time: 09:00 Principal diagnosis: HFpEF, Right sided HF Interval history: This is a 78-year-old female presented to the emergency department complaints of shortness of breath and lower extremity edema. The patient was having acute HFpEF and has been diuresed with IV Lasix. She states that she is feeling much better today and is ready to be discharged home. She denies any chest pain or pressure. She states that she is always short of breath but it has significantly improved since being in the hospital. She states that she does wear oxygen at home. She states that her cough has resolved. She states her lower extremity edema has significantly improved as well. She denies any fever, chills, nausea, vomiting or diarrhea. Exam Data for Last 24 hours Vital signs and Labs for Last 24 Hours: Temp Pulse Resp BP Pulse Ox O2 Del Method O2 Flow Rate 98.3 F 76 16 113/55 L 92 L Nasal Cannula 3 12/16/23 08:00 12/16/23 08:00 12/16/23 08:00 12/16/23 08:00 12/16/23 08:00 12/16/23 08:00 12/16/23 08:00 FiO2 40 12/14/23 06:10 Laboratory Results - last 24 hr 12/16/23 06:00: WBC 9.7, RBC 4.77, Hgb 13.3, Hct 44.0, MCV 92.2, MCH 28.0, MCHC 30.3 L, RDW 15.2, Plt Count 221, MPV 7.6, Neut % (Auto) 76.3, Lymph % (Auto) 15.3, [place] % (Auto) 6.2, Eos % (Auto) 1.8, Baso % (Auto) 0.4, Neut # (Auto) 7.4, Lymph # (Auto) 1.5, [place] # (Auto) 0.6, Eos # (Auto) 0.2, Baso # (Auto) 0.0, Sodium 128 L, Potassium 4.7, Chloride 96 L, Carbon Dioxide 31 H, Anion Gap 5.7, BUN 20 H, Creatinine 0.70 D, Estimated Creat Clear 34, Estimated GFR 81, Est GFR ( Amer) 98 D, Glucose 95, Calcium 9.1, Magnesium 2.0, Total Bilirubin 0.5, AST 26, ALT 18, Alkaline Phosphatase 72, Total Protein 6.9, Albumin 3.7, Globulin 3.2, Albumin/Globulin Ratio 1.2, Triglycerides 106, Cholesterol 173, LDL Cholesterol Direct 51.10 L, VLDL Cholesterol 21, HDL Cholesterol 91 H, Cholesterol/HDL Ratio 1.9 I & O for Last 24 hours: Intake & Output 12/13/23 12/14/23 12/15/23 12/16/23 23:59 23:59 23:59 23:59 Intake Total 810 / 860 1380 / 1780 1940 / 2070 850 / 850 Output Total 3000 / 3000 2600 / 2600 3770 / 3770 0 / 0 Balance -2190 / -2140 -1220 / -820 -1830 / -1700 850 / 850 Weight 112 lb 11.2 oz 112 lb 6.4 oz 109 lb 12.643 oz 100 lb 12.8 oz Constitutional Constitutional: no acute distress and thin *Routine HEENT Exam Head: Present normocephalic and atraumatic ENT: Present mucous membranes moist *Routine Neck Exam Neck: Present supple, full ROM and normal carotid upstroke; Absent JVD, carotid bruit or lymphadenopathy *Routine Respiratory Exam Respiratory: Present rales, wheezes, crackles, diminished air movement and symmetric chest movement *Routine Cardiovascular Exam Cardiovascular: Present RRR, Normal S1 and Normal S2; Absent murmur or gallop *Routine Abdominal Exam Abdominal: Present soft and normoactive bowel sounds; Absent tenderness, distended or organomegaly *Routine Extremities Exam Extremities: Present full ROM, pulses intact and normal capillary refill; Absent cyanosis, clubbing or edema *Routine Skin Exam Skin: Present intact and warm; Absent erythema *Routine Neurological Exam Neurological: Present alert, oriented X3 and CN II-XII intact; Absent sensory deficit or motor deficit Routine Psychiatric Exam Psychiatric: Present normal affect Progress Note: A&P Assessment and plan (1) Acute heart failure with preserved ejection fraction (HFpEF): Status: Acute (2) Pulmonary embolism: Status: Acute (3) Acute respiratory failure with hypoxia and hypercarbia: Status: Resolved (4) Acute exacerbation of chronic obstructive pulmonary disease (COPD): Status: Acute (5) Tobacco abuse: Status: Acute (6) BRBPR (bright red blood per rectum): Status: Acute (7) Cachexia: Status: Acute (8) Pneumonia: Status: Acute Assessment and Plan Assessment and Plan for All Diagnoses:: Plan: 1. 1. The patient was admitted to the hospital with shortness of breath. She is having an acute HFpEF. Her BNP was over 4000 with bilateral pleural effusions. She is being diuresed with IV Lasix. Stop IV Lasix and start Lasix 40 mg p.o. daily. 2. Continue lisinopril for HFpEF. 3. Will hold off on a beta-re due to HFpEF and COPD exacerbation. 4. Start Jardiance 10 mg daily for HFpEF. 5. The patient's preliminary echocardiogram shows a normal ejection fraction with a severely dilated right ventricle and moderately reduced RV function which is most likely stemming from her underlying lung disease. The patient does have right-sided heart failure and was diuresed with IV Lasix. She has a -1 L fluid balance overnight and states that her symptoms have improved significantly. 6. The patient does have COPD and pneumonia. She does have a pulmonology consult. Will defer. 7. The patient does have a small pulmonary embolus that is nonoccluding in the small branch of the left lower lobe. Stop Lovenox and start Eliquis 5 mg p.o. twice daily for long-term anticoagulation. 8. Her blood pressure is well-controlled. 9. Her LDL goal is less than 100. Her LDL is 51. 10. No further recommendations at this time from a cardiac standpoint. The patient can be discharged home today from a cardiac standpoint. She will need to follow-up in cardiology clinic in 1 week on an outpatient basis. 11. The patient can be discharged on the following cardiac medications: Eliquis 5 mg p.o. twice daily, Jardiance 10 mg p.o. daily, Lasix 40 mg p.o. daily, lisinopril 5 mg p.o. daily Thank you for the opportunity to help participate in the care of this patient. All recommendations and orders are per Dr. Lorenz.
--- NOTE | 2023-12-16 11:11 | P.PN_ITS ---
Subjective *Date: 12/16/23 *Time: 11:11 Interval history: No acute resp events overnight. Admits improving status Pulmonology Exam Inpatient Vital signs and Labs for Last 24 Hours: Temp Pulse Resp BP Pulse Ox O2 Del Method O2 Flow Rate 98.3 F 76 16 113/55 L 92 L Nasal Cannula 3 12/16/23 08:00 12/16/23 08:00 12/16/23 08:00 12/16/23 08:00 12/16/23 08:00 12/16/23 08:00 12/16/23 08:00 FiO2 40 12/14/23 06:10 Laboratory Results - last 24 hr 12/16/23 06:00: WBC 9.7, RBC 4.77, Hgb 13.3, Hct 44.0, MCV 92.2, MCH 28.0, MCHC 30.3 L, RDW 15.2, Plt Count 221, MPV 7.6, Neut % (Auto) 76.3, Lymph % (Auto) 15.3, [place] % (Auto) 6.2, Eos % (Auto) 1.8, Baso % (Auto) 0.4, Neut # (Auto) 7.4, Lymph # (Auto) 1.5, [place] # (Auto) 0.6, Eos # (Auto) 0.2, Baso # (Auto) 0.0, Sodium 128 L, Potassium 4.7, Chloride 96 L, Carbon Dioxide 31 H, Anion Gap 5.7, BUN 20 H, Creatinine 0.70 D, Estimated Creat Clear 34, Estimated GFR 81, Est GFR ( Amer) 98 D, Glucose 95, Calcium 9.1, Magnesium 2.0, Total Bilirubin 0.5, AST 26, ALT 18, Alkaline Phosphatase 72, Total Protein 6.9, Albumin 3.7, Globulin 3.2, Albumin/Globulin Ratio 1.2, Triglycerides 106, Cholesterol 173, LDL Cholesterol Direct 51.10 L, VLDL Cholesterol 21, HDL Cholesterol 91 H, Cholesterol/HDL Ratio 1.9 Temp Pulse Resp BP Pulse Ox O2 Del Method O2 Flow Rate 99.7 F H 82 28 H 126/73 97 Nasal Cannula 3 12/14/23 16:00 12/15/23 08:00 12/15/23 08:00 12/15/23 08:00 12/15/23 08:00 12/15/23 09:00 12/15/23 09:00 FiO2 40 12/14/23 06:10 Laboratory Results - last 24 hr 12/15/23 05:43: WBC 10.7, RBC 4.36, Hgb 12.4, Hct 39.5, MCV 90.5, MCH 28.5, MCHC 31.5 L, RDW 15.1, Plt Count 208, MPV 7.5, Neut % (Auto) 77.9, Lymph % (Auto) 15.3, [place] % (Auto) 5.8, Eos % (Auto) 0.5, Baso % (Auto) 0.4, Neut # (Auto) 8.3 H, Lymph # (Auto) 1.6, [place] # (Auto) 0.6, Eos # (Auto) 0.1, Baso # (Auto) 0.0, Sodium 133 L, Potassium 4.4, Chloride 97 L, Carbon Dioxide 36 H, Anion Gap 4.4 L , BUN 16, Creatinine 0.90 D, Estimated Creat Clear 37, Estimated GFR 61, Est GFR ( Amer) 73 D, Glucose 96, Calcium 8.7, Magnesium 2.1, Total Bilirubin 0.5, AST 28, ALT 20, Alkaline Phosphatase 70, Total Protein 6.6, Albumin 3.5, Globulin 3.1, Albumin/Globulin Ratio 1.1 I & O for Labs for Last 24 Hours: Intake & Output 12/13/23 12/14/23 12/15/23 12/16/23 23:59 23:59 23:59 23:59 Intake Total 810 / 860 1380 / 1780 1939 / 2069 850 / 850 Output Total 3000 / 3000 2600 / 2600 3770 / 3770 0 / 0 Balance -2190 / -2140 -1220 / -820 -1830 / -1700 850 / 850 Weight 112 lb 11.2 oz 112 lb 6.4 oz 109 lb 12.643 oz 100 lb 12.8 oz Intake & Output 12/12/23 12/13/23 12/14/23 12/15/23 23:59 23:59 23:59 23:59 Intake Total 810 / 860 1380 / 1780 1120 / 1120 Output Total 3000 / 3000 2600 / 2600 2220 / 2220 Balance -2190 / -2140 -1220 / -820 -1100 / -1100 Weight 112 lb 11.2 oz 112 lb 6.4 oz 109 lb 12.8 oz Constitutional: Present moderate distress Head: Present normocephalic and atraumatic ENT: Present normal exam, normal oropharynx and mucous membranes moist Neck: Present normal inspection and full ROM Respiratory: Present prolonged expiratory phase, respiratory distress, crackles, diminished air movement and able to speak in complete sentences; Absent wheezes Cardiac: Present S1/S2, Tachycardia and radial pulses present GI: Present soft and distention; Absent tenderness or guarding Rectal (female): Present deferred (female): Present deferred Skin: Present intact; Absent cyanosis or jaundice Neuro: Present alert, awake and oriented x 3 Extremities: Present normal inspection and edema; Absent clubbing or cyanosis Psychiatric: Present normal affect and cooperative Assessment and Plan *Assessment and plan (1) Pulmonary embolism: Status: Acute Qualifiers: Pulmonary embolism type: single subsegmental (without acute cor pulmonale) Qualified Code(s): I26.93 - Single subsegmental thrombotic pulmonary embolism without acute cor pulmonale Category: Medical Code(s): I26.99 - Other pulmonary embolism without acute cor pulmonale (2) Hypercarbia: Status: Acute Category: Medical Code(s): R06.89 - Other abnormalities of breathing (3) Pulmonary emphysema: Status: Acute Qualifiers: Emphysema type: unspecified Qualified Code(s): J43.9 - Emphysema, unspecified Category: Medical Code(s): J43.9 - Emphysema, unspecified (4) Chronic respiratory failure with hypercapnia: Status: Acute Category: Medical Code(s): J96.12 - Chronic respiratory failure with hypercapnia (5) Pleural effusion: Status: Acute Category: Medical Code(s): J90 - Pleural effusion, not elsewhere classified (6) Pneumonia: Status: Acute Qualifiers: Pneumonia type: due to unspecified organism Laterality: unspecified laterality Lung location: unspecified part of lung Qualified Code(s): J18.9 - Pneumonia, unspecified organism Category: Medical Code(s): J18.9 - Pneumonia, unspecified organism Plan Ms. Pérez is a 78-year-old female current smoker greater than [id number] smoking history, COPD last seen in the hospital in August 2021 hypercarbic respiratory failure needing noninvasive ventilatory support discharge, no showed to clinic appointments presented to the ER with worsening cough respiratory system bilateral lower extremity swelling and pulmonary was called for further evaluation and management. CT upon admission bilateral diffuse emphysematous changes along with septal thickening. Left lower lobe mucoid secretions. Left lower lobe nonoccluding pulmonary embolism Blood gas upon admission chronic hypercarbic respiratory failure with a pH of 7.35 and a pCO2 of 76.6. COVID-19 and flu PCR panel negative Afebrile. Hemodynamically stable. No evidence of leukocytosis. Patient is receiving diuretics, antibiotics steroids and nebulization therapies for presumed COPD exacerbation and pneumonia. On initial examination appeared to be in moderate respiratory distress. Able to talk in full sentences no significant wheezing appreciated. Bilateral lower extremity edema. Interval Update: Imprpoving distress. LE venous doppler negative for DVT. Wheezing improving. Plan: Continue volume optimization as per cardiology and primary team Continue full dose anticoagulation, follow-up with lower extremity venous Doppl er. D-dimer elevated at 1.15. Will at least complete 3 months of anticoagulation Continue Trelegy 100 inhaler along with DuoNebs every 6 as needed Continue prednisone 40 mg daily x 5 days Continue levofloxacin for a total of 5 days F/U nocturnal oximetry testing to facilitate noninvasive ventilator therapy upon discharge for the noted chronic hypercarbic respiratory failure. # Thank you for involving pulmonary in this patient care. Will continue to follow.
[2023-12-16 11:26] VITALS: BP 94/50; PULSE 70; RESP 17; TEMP 36.6; O2SAT 95
[2023-12-16 12:00] VITALS: PULSE 70
[2023-12-16] MEDS: APIXABAN 5MG TABLET 5 MG PO (12:24)
[2023-12-16] MEDS: EMPAGLIFLOZIN 10MG TABLET 10 MG PO (12:24)
--- NOTE | 2023-12-16 14:42 | EXP.DC.SUM ---
General Admission date:: 12/13/23 HPI HPI HPI: Ms. Miller is a 78-year-old female with history of COPD and tobacco abuse. She presented to the ER because of increased swelling in her feet over the past few weeks and increased cough for the past 2 to 3 days. Normally wears 3 L of oxygen at baseline. On arrival to the ER she complains of increased dyspnea with exertion. Difficulty laying flat. She also reports having had an episode of bright red blood with a bowel movement. Occasionally painful over the past day or 2. She denies any maria a fever, nausea or vomiting. On the medication for her heart fluid management. Has been using her nebulizer at home. Workup in the ER concerning for hyperexpansion lung maravilla. Blood gas showing hypercapnic respiratory failure with pH of 7.3. Initiated on BiPAP. Medicine consulted for admission and further management. Per chart review, EMS administered 1 DuoNeb as well as 125 mg of Solu-Medrol and route. On evaluation, patient is diuresing well. She was administered Lasix in the ER. She is getting up to bedside commode on evaluation. Awaiting repeat blood gas to monitor for response to BiPAP. Labs concerning for elevated BNP of 4000. Normal white count, kidney function normal with creatinine 0.6 and BUN of 12, troponin negative initially. EKG with no ischemic changes. CTA obtained does show small subsegmental PE. Hospital Course Hospital Course Hospital Course: 78 year old female presented to the ED via ems for hypoxia and respiratory distress. Found to have some mild hypercapnic respiratory failure with COPD exacerbation and PE. Concern for CHF exacerbation versus new diagnosis of CHF. Medicine consulted by ER physician, discussed case, requesting admission for diuresis. I agreed to admit for further management. Condition stabilizing. Problems addressed as follows: #Acute HFpEF exacerbation -No reported history however with her extensive COPD history, in light of her elevated BNP of 4000, strong concern for component of diastolic heart failure plus or minus systolic heart failure. ? ECHO 12/16/2023 revealed normal LV systolic function, severe RV dilation with moderate reduction in RV function. RVSP 40 to 45 mmHg. Moderate to severe tricuspid regurgitation. ? Clinically improved with IV Lasix diuresis. ? Cardiology consulted, recommended adding lisinopril given decreased RV function. ? Discharged with Lasix 40 mg daily, Jardiance 10 mg, and lisinopril 5 mg daily. ? Will follow-up with cardiology within 1 week. #Pulmonary embolism ? CTA revealed nonoccluding filling defect and small branch of left lower lobe consistent with pulmonary embolism. ? Discharged with Eliquis 10 mg twice daily for total of 7 days, then transition to 5 mg twice daily. Will need at least 3 months of anticoagulation. #Acute hypoxic, hypercapnic respiratory failure #COPD exacerbation -Presented to ED with decreased saturations. Placed on BiPAP due to pH of 7.3 with pCO2 in the 60s. -Pulmonology consulted, recommend continuing antibiotics with Levaquin for 5 days. Continue full dose anticoagulation. Complete 5 days of steroids with prednisone. -Clinically improved with DuoNeb and Pulmicort breathing treatments, steroids, antibiotics. -Discharged with Trelegy 100 inhaler, levofloxacin for 4 more days. ? Patient will need BiPAP nightly for chronic hypercapnic respiratory failure secondary to COPD, and not predominantly from obstructive sleep apnea. - Bipap settings 16/6, 40%, with a backup respiratory rate. Exam Data for Last 24 hours Vital signs and Labs for Last 24 Hours: Temp Pulse Resp BP Pulse Ox O2 Del Method O2 Flow Rate 97.8 F 70 17 94/50 L 95 Nasal Cannula 3 12/16/23 11:26 12/16/23 11:26 12/16/23 11:26 12/16/23 11:26 12/16/23 11:26 12/16/23 11:26 12/16/23 11:26 FiO2 40 12/14/23 06:10 Laboratory Results - last 24 hr 12/16/23 06:00: WBC 9.7, RBC 4.77, Hgb 13.3, Hct 44.0, MCV 92.2, MCH 28.0, MCHC 30.3 L, RDW 15.2, Plt Count 221, MPV 7.6, Neut % (Auto) 76.3, Lymph % (Auto) 15.3, [place] % (Auto) 6.2, Eos % (Auto) 1.8, Baso % (Auto) 0.4, Neut # (Auto) 7.4, Lymph # (Auto) 1.5, [place] # (Auto) 0.6, Eos # (Auto) 0.2, Baso # (Auto) 0.0, Sodium 128 L, Potassium 4.7, Chloride 96 L, Carbon Dioxide 31 H, Anion Gap 5.7, BUN 20 H, Creatinine 0.70 D, Estimated Creat Clear 34, Estimated GFR 81, Est GFR ( Amer) 98 D, Glucose 95, Calcium 9.1, Magnesium 2.0, Total Bilirubin 0.5, AST 26, ALT 18, Alkaline Phosphatase 72, Total Protein 6.9, Albumin 3.7, Globulin 3.2, Albumin/Globulin Ratio 1.2, Triglycerides 106, Cholesterol 173, LDL Cholesterol Direct 51.10 L, VLDL Cholesterol 21, HDL Cholesterol 91 H, Cholesterol/HDL Ratio 1.9 I & O for Last 24 hours: Intake & Output 12/13/23 12/14/23 12/15/23 12/16/23 23:59 23:59 23:59 23:59 Intake Total 810 / 860 1380 / 1780 1940 / 2070 1450 / 1450 Output Total 3000 / 3000 2600 / 2600 3770 / 3770 0 / 0 Balance -2190 / -2140 -1220 / -820 -1830 / -1700 1450 / 1450 Weight 51.12 kg 50.984 kg 49.8 kg 45.722 kg Constitutional Constitutional: no acute distress *Routine HEENT Exam Head: Present normocephalic Eye: Present EOMI and PERRL ENT: Present mucous membranes moist *Routine Neck Exam Neck: Present supple; Absent lymphadenopathy *Routine Respiratory Exam Respiratory: Present wheezes; Absent CTA bilaterally *Routine Cardiovascular Exam Cardiovascular: Present RRR *Routine Abdominal Exam Abdominal: Present soft and normoactive bowel sounds; Absent tenderness *Routine Extremities Exam Extremities: Absent cyanosis, clubbing or edema *Routine Skin Exam Skin: Present warm; Absent rash *Routine Neurological Exam Neurological: Present alert and oriented X3 Results Data Completed and Pending Labs on day of discharge: Labs from last 24 hours 12/16/23 06:00 WBC 9.7 RBC 4.77 Hgb 13.3 Hct 44.0 MCV 92.2 MCH 28.0 MCHC 30.3 L RDW 15.2 Plt Count 221 MPV 7.6 Neut % (Auto) 76.3 Lymph % (Auto) 15.3 [place] % (Auto) 6.2 Eos % (Auto) 1.8 Baso % (Auto) 0.4 Neut # (Auto) 7.4 Lymph # (Auto) 1.5 [place] # (Auto) 0.6 Eos # (Auto) 0.2 Baso # (Auto) 0.0 Sodium 128 L Potassium 4.7 Chloride 96 L Carbon Dioxide 31 H Anion Gap 5.7 BUN 20 H Creatinine 0.70 D Estimated Creat Clear 34 Estimated GFR 81 Est GFR ( Amer) 98 D Glucose 95 Calcium 9.1 Magnesium 2.0 Total Bilirubin 0.5 AST 26 ALT 18 Alkaline Phosphatase 72 Total Protein 6.9 Albumin 3.7 Globulin 3.2 Albumin/Globulin Ratio 1.2 Triglycerides 106 Cholesterol 173 LDL Cholesterol Direct 51.10 L VLDL Cholesterol 21 HDL Cholesterol 91 H Cholesterol/HDL Ratio 1.9 DS: Diagnosis Discharge Diagnosis (1) Pulmonary embolism: Status: Acute Code(s): I26.99 - Other pulmonary embolism without acute cor pulmonale Qualifiers: Pulmonary embolism type: single subsegmental (without acute cor pulmonale) Qualified Code(s): I26.93 - Single subsegmental thrombotic pulmonary embolism without acute cor pulmonale (2) Hypercarbia: Status: Acute Code(s): R06.89 - Other abnormalities of breathing (3) Pulmonary emphysema: Status: Acute Code(s): J43.9 - Emphysema, unspecified Qualifiers: Emphysema type: unspecified Qualified Code(s): J43.9 - Emphysema, unspecified (4) Chronic respiratory failure with hypercapnia: Status: Acute Code(s): J96.12 - Chronic respiratory failure with hypercapnia (5) Pleural effusion: Status: Acute Code(s): J90 - Pleural effusion, not elsewhere classified (6) Pneumonia: Status: Acute Code(s): J18.9 - Pneumonia, unspecified organism Qualifiers: Laterality: unspecified laterality Lung location: unspecified part of lung Pneumonia type: due to unspecified organism Qualified Code(s): J18.9 - Pneumonia, unspecified organism Meds Home Medications and Allergies Home Medications ?Medication ?Instructions ?Recorded ?Confirmed ?Type conjugated estrogens 0.625 mg/gram 0.625 mg vaginal DAILY 09/27/22 12/13/23 History vaginal cream (Premarin) apixaban 5 mg tablet (Eliquis) 5 mg PO BID #30 tabs 12/16/23 Rx apixaban 5 mg tablet (Eliquis) 10 mg (2 x 5 mg) PO BID 4 days #16 12/16/23 Rx tabs empagliflozin 10 mg tablet 10 mg PO DAILY #30 tabs 12/16/23 Rx (Jardiance) fluticasone fur. 100 mcg-umeclid 1 inh inhalation DAILY #60 ea 12/16/23 Rx 62.5 mcg-vilant 25 mcg inhalat.powder (Trelegy Ellipta) furosemide 40 mg tablet 40 mg PO DAILY #30 tabs 12/16/23 Rx levofloxacin 750 mg tablet 750 mg PO DAILY 4 days #4 tabs 12/16/23 Rx lisinopril 5 mg tablet 5 mg PO DAILY #30 tabs 12/16/23 Rx New Prescriptions to Start Prescriptions: apixaban [Eliquis] Saray,Clarence apixaban [Eliquis] Saray,Clarence empagliflozin [Jardiance] Saray,Clarence vaffdokzivv-kwxwdjeac-guoifwle [Trelegy Ellipta] Saray,Clarence furosemide Saray,Clarence levofloxacin Saray,Clarence lisinopril Saray,Clarence Allergies Allergy/AdvReac Type Severity Reaction Status Date / Time No Known Allergies Allergy Verified 09/27/22 00:58 Discharge Plan Disposition Patient Disposition: Home Health Service Condition: Fair Discharge Order Discharge Orders: Discharge Order (Routine); Ordered 12/16/23 Ordered By: Clarence So Follow up Plan Follow up with: Cristin Bledsoe APRN [Nurse Practitioner] - 12/25/23 9:45 am (Within 1 week) Sebastian Jenkins MD [Physician] - 12/22/23 1:00 pm (Within 1 week) Prescriptions/Medication Reconciliation: New Eliquis 5 mg Tablet 5 mg PO BID Qty: 30 0RF Jardiance 10 mg Tablet 10 mg PO DAILY Qty: 30 0RF Trelegy Ellipta 100-62.5-25 mcg Blister With Device 1 inh inhalation DAILY Qty: 60 0RF furosemide 40 mg Tablet 40 mg PO DAILY Qty: 30 0RF lisinopril 5 mg Tablet 5 mg PO DAILY Qty: 30 0RF levofloxacin 750 mg tablet 750 mg PO DAILY 4 Days Qty: 4 0RF Eliquis 5 mg tablet 10 mg PO BID 4 Days Qty: 16 0RF Rx Instructions: Take 10 mg twice a day for the first 4 days, then start taking 5 mg twice a day thereafter. Continued Premarin 0.625 mg/gram Cream 0.625 mg VAGINAL DAILY Rx Instructions: off 5 days; repeat cycle Other Ambulatory Orders: Home Medical Equipment (Routine) Location: None Selected Ordered By: Clarence So Problem Reconciliation Problems Reviewed?: Yes Patient Discharge Instructions Patient Instructions: DI for Heart Failure, DI for Pneumonia -- Adult, DI for Pulmonary Embolism Print Language: Kazakh Providers Primary Care Provider: Provider,Referral Admit Provider: Rohith Diaz Attending Provider: Rohith Diaz
--- NOTE | 2023-12-16 14:57 | CARE MANAGER ---
Patient will require BIPAP. She gets her Oxygen from [facility], but [facility] is ok for BIPAP as she wants local. Information sent to them.
--- NOTE | 2023-12-18 11:06 | CARE MANAGER ---
Called and spoke with patient's son and daughter to discuss recent discharge. Son states that she is doing well and has started new medication. He was concerned about a nose bleed that patient had yesterday, and I educated on new use of blood thinner and when to notify MD of issues. Daughter wrote down scheduled f/u appts. No other concerns voiced during call.
== END 2023-12-16 15:20 | disposition home health service (06) ==
LOC: ER 08:56 → 2ND 10:05
PROVIDERS: Emergency Medicine; Nurse Practitioner Family; Admitting Provider Internal Medicine Adolescent Medicine; Emergency Provider Emergency Medicine; Visit Provider Internal Medicine Adolescent Medicine
DX: I50.31 Acute diastolic (congestive) heart failure (principal); J96.01 Acute respiratory failure with hypoxia; J96.02 Acute respiratory failure with hypercapnia; I26.99 Other pulmonary embolism without acute cor pulmonale; J44.1 Chronic obstructive pulmonary disease with (acute) exacerbation; F17.210 Nicotine dependence, cigarettes, uncomplicated; K62.5 Hemorrhage of anus and rectum; R64 Cachexia; Z68.1 Body mass index [BMI] 19.9 or less, adult; Z79.899 Other long term (current) drug therapy; Z99.81 Dependence on supplemental oxygen
CPT/HCPCS: 36415; 71045; 71275; 74174; 80048; 80053; 80061; 82803; 83605; 83735; 83880; 84484; 85025; 85378; 87070; 87205; 87636; 93005; 93306; 93970; 94640; 94660; 94760; 94762; 97163; 97166; 97530; 99291; G0378; J1650; J1940; J1956; J3475; J7620; Q9967